=== PATIENT | female | born 1935 | race Caucasian/White ===

== ENCOUNTER 2019-10-24 05:59 | Inpatient (IN) ==
--- NOTE | 2019-10-14 13:14 | PAT Medication Instructions ---
Medication Instructions Date of Service October 14, 2019 Home Medications Eliquis 5 mg PO BID Macular Health Formula 1 cap PO BID allopurinol 300 mg PO QAM metoprolol succinate 75 mg PO QAM pravastatin 20 mg PO QAM tolterodine 4 mg PO QAM lorazepam 0.5 mg SUBLINGUAL DAILY PRN ASK your prescriber and surgeon Eliquis 5 mg PO BID STOP taking 2 weeks before surgery Macular Health Formula 1 cap PO BID DO NOT take the morning of surgery tolterodine 4 mg PO QAM Take morning of surgery With a small sip of water, OTHERWISE NOTHING TO EAT OR DRINK AFTER MIDNIGHT: allopurinol 300 mg PO QAM metoprolol succinate 75 mg PO QAM pravastatin 20 mg PO QAM lorazepam 0.5 mg SUBLINGUAL DAILY PRN (if needed) Take evening before surgery lorazepam 0.5 mg SUBLINGUAL DAILY PRN (if needed) Other Notes If you have any questions please call us at [phone] or [phone] or [phone] or [phone]
--- NOTE | 2019-10-15 12:34 | Anesthesiology Consultation ---
Date of Service October 15, 2019 Assessment & Plan (1) Encounter for pre-operative examination: Chart Review Chart Review: Pending: Refer to Additional Notes / Consult section (Most recent pacer check and cardio note) and Patient seen in Pre Admission Testing Per 10/15/19 [facility] appt, pt resides in [facility] but denies other travel. Did educate patient about discussing Covid testing three days prior to surgery with surgeon. Educated on importance of social distancing and quarantine from time of Covid test until after surgery Teaching & Discussion Pre-Anesthesia Teaching/Discussion Notes: Instructed NPO after midnight before surgery,except medications with 15 cc of water. Medication instructions provided according to the [facility] guidelines. History Surgery Operation Date: 10/24/19 07:45 Proposed Procedures p L5-S1 Decompression and Fusion, Spinal Cord Monitoring - Felix Tovar, Height/Weight Height: 5 ft 5 in Weight: 81.1 kg Allergies Allergy/AdvReac Type Severity Reaction Status Date / Time adhesive tape Allergy Rash Verified 10/11/19 10:22 tetracycline Allergy Rash Verified 10/11/19 10:22 Medications Home Medications Medication Instructions Recorded Confirmed Last Taken Eliquis 5 mg PO BID 11/22/18 10/11/19 12/08/18 Macular Health Formula 1 cap PO BID 11/22/18 10/11/19 12/10/18 allopurinol 300 mg PO QAM 11/22/18 10/11/19 12/10/18 metoprolol succinate 75 mg PO QAM 11/22/18 10/11/19 12/11/18 08:40 pravastatin 20 mg PO QAM 11/22/18 10/11/19 12/10/18 tolterodine 4 mg PO QAM 11/22/18 10/11/19 12/10/18 lorazepam 0.5 mg SUBLINGUAL DAILY PRN 11/28/18 10/11/19 12/10/18 Past Medical History Medical History Ankylosing spondylitis Atrial fibrillation no cardioversions> has pacer GERD (gastroesophageal reflux disease) Well controlled and stable History of anesthesia reaction "HAD A HARD TIME WAKING UP" IN 1962 - NO ISSUES WITH SUBSEQUENT SURGERIES History of tuberculosis exposure Possibly as child> unsure if actually had the infection or not- incidental finding on CXR Hyperlipidemia Hypertension Kidney stones passed on own Lyme disease x2 Macular degeneration Pacemaker [employer] checked within last 6 months > [facility] checks it. follows Dr. Cedeno at [facility] Sleep apnea CPAP Stroke DEC 2017> no residual effects. Double vision initially but no longer> doesn't follow with anyone> Eliquis Exercise / Class Metabolic Activity III < 4 Walking/Shop/Light housework (one flight of stairs- mild SOB but no chest pain) Past Family History Family History Mother Cancer Father Cancer Past Surgical History Surgical History Fusion of spine L2,3 History of appendectomy History of bowel resection History of cardiac cath june 2014> [facility]> no stents> just for check up of Afib/ post ablation History of cataract surgery LEFT. 11/27/2018. PROPOFOL USED, NO ISSUES History of colonoscopy History of hysterectomy History of Alex fundoplication x2 History of radiofrequency ablation (RFA) procedure for cardiac arrhythmia Mar 2014 History of tonsillectomy S/P tendon repair RIGHT HAND x2 and also cyst removal Past Anesthesia History No Hx of Anesthesia Complications (WITH EXCEPTION OF ONE EPISODE OF SLOW TO WAKE ) and No Family Hx of Anesthesia Complications History of PONV No Hx of PONV and No Hx of Motion Sickness Social History Smoking Status: Never smoker Do You Dip or Chew Tobacco: No Hx Alcohol Use: Yes Alcohol type: wine alcohol intake frequency: holidays/special occasions only Hx Substance Use: No substance use type: does not use Review of Systems Patient denies chest pain, shortness of breath, cough, wheezing, palpitations. No hx of seizures, NE. No hx of blood clots or blood transfusions Physical Exam Vital Signs VITALS BP 138/82 P 61 TEMP 98.2 SP02 95% RESP 16 Constitutional no acute distress ENMT Mouth: no TMJ clicking Thyromental Distance: < 3.5 Finger Breadths (3.0) Mallampati Class: III Crowns to molars Denies missing teeth Neck + short neck, + thick neck and + limited neck extension (minimal ) Respiratory normal respiratory effort; no respiratory distress Auscultation: lungs clear to auscultation bilaterally; no wheezes Cardiovascular Rate/Rhythm: regular rate and regular rhythm Heart Sounds: no murmur Vessels: no carotid bruit Musculoskeletal Spine: no pain with cervical ROM Neurologic moves all extremities Psychiatric Orientation: alert Testing Laboratory Results 10/15/19 12:50 10/15/19 12:50 PT 11.4 Seconds (9.0-12.0) 10/15/19 12:50 INR 1.1 (0.9-1.1) 10/15/19 12:50 APTT 44.6 Seconds (21.0-31.0) H 10/15/19 12:50 Urine Color Yellow 10/15/19 12:50 Urine Appearance Clear (Clear) 10/15/19 12:50 Urine pH 7.0 (4.5-7.5) 10/15/19 12:50 Ur Specific [place] 1.014 (1.000-1.030) 10/15/19 12:50 Urine Protein Negative (Negative) 10/15/19 12:50 Urine Glucose (UA) Negative (Negative) 10/15/19 12:50 Urine Ketones Negative (Negative) 10/15/19 12:50 Urine Nitrite Negative (Negative) 10/15/19 12:50 Ur Leukocyte Esterase 2+ (Negative) H 10/15/19 12:50 Urine WBC (Auto) 10-30 /hpf (0-5) H 10/15/19 12:50 Urine RBC (Auto) 0-4 /hpf (0-4) 10/15/19 12:50 U Hyaline Cast (Auto) 1-5 /lpf (0-5) 10/15/19 12:50 U Epithel Cells (Auto) 20-30 /lpf (0-5) H 10/15/19 12:50 Urine Bacteria (Auto) Negative (Negative) 10/15/19 12:50 Blood Type O Positive 10/15/19 12:50 Antibody Screen NEGATIVE 10/15/19 12:50 10/15/19 12:50 Urine Culture - Final Urine,Clean Catch More than three types of organisms present, all moderate counts mixed probable skin idalia. No further identifications or sensitivities to follow. Electrocardiogram Date: 10/15/19 Atrial paced rhythm with prolonged AV conduction at 60 bpm. Chest X-Ray Date: 10/15/19 Findings: + NAD Small hiatal hernia. Minimal basilar atelectasis. Otherwise negative study. Echocardiogram Date: 01/21/19 EF: 55-59% LV Function: normal RWMA: + none (not all segments were visualized ) Other Findings: + LVH (mild/concentric ) LAE suggests diastolic dysfunction. Mild AR. Mild to moderate MR. Mild TR. No apparent ASD or PFO were noted on exam. 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 Mild pulm HTN with PASP of 41mmHg. Stress Test Date: 02/01/19 Type: nuclear Normal myocardial perfusion imaging study with no obvious areas of ischemia or infarction. Breast attenuation. Normal gated EF >70%. EKG portion negative for ischemia. The risk/extent of ischemia is low. No significant changes since 02/02/17 study. Cardiac Catheterization Date: 07/03/14 LM- appears normal LCx- mild intimal disease LAD- 30% RCA- 30% Impression: Moderate nonobstructive coronary disease in the setting of preserved LV function (EF=60%). Mild to moderate pulm HTN (RVSP= 44mmHg) with normal wedge.
--- NOTE | 2019-10-15 13:30 | XRay Report ---
XR chest Pre-admission PA/Lat CLINICAL HISTORY: PAT preoperative COMPARISON STUDY: No previous studies for comparison. FINDINGS: Small hiatal hernia. Platelike atelectasis at the lung bases. Lungs otherwise appear clear. There is a permanent bipolar cardiac pacemaker. IMPRESSION: Small hiatal hernia. Minimal basilar atelectasis. Otherwise negative study. ACT 112: Negative or not required by law. The above report was generated using voice recognition software. It may contain grammatical, syntax or spelling errors. Electronically signed by: Luis Ling M.D. 10/15/2019 1:29 PM
[2019-10-15 14:14] LABS: Basophils # (auto) 0.01 K/uL (0-0.2); Basophils % (auto) 0.1 %; Eosinophils # (auto) 0.19 K/uL (0-0.5); Eosinophils % (auto) 2.7 %; Hematocrit (blood only) 44.3 % (37-47); Hemoglobin 14.9 g/dL (12.0-16.0); Immature Granulocytes # (auto) 0.01 K/uL (0.00-0.02); Immature Granulocytes % (auto) 0.1 %; Lymphocytes # (auto) 1.94 K/uL (1.2-3.4); Lymphocytes % (auto) 27.4 %; Mean Corpuscular Hemoglobin 33.1 pg (25-34); Mean Corpuscular Hgb Conc 33.6 g/dL (32-36); Mean Corpuscular Volume 98.4 fL (80-100); Mean Platelet Volume 9.4 fL (7.4-10.4); Monocytes # (auto) 0.45 K/uL (0.11-0.59); Monocytes % (auto) 6.3 %; Neutrophils # (auto) 4.49 K/uL (1.4-6.5); Neutrophils % (auto) 63.4 %; Platelet Count 223 K/uL (130-400); RDW Coefficient of Variation 14.8 % (11.5-14.5); White Blood Count 7.09 K/uL (4.8-10.8)
[2019-10-15 14:19] LABS: BUN Creatinine Ratio 20.7 (10-20); Calcium 10.3 mg/dl (8.5-10.1); Creatinine Clr Calc Pharmacy 52.1 ml/min; Est GFR (African American) 72.4; Est GFR (Non-African American) 62.5; Potassium 4.1 mmol/L (3.5-5.1)
[2019-10-15 14:34] LABS: INR 1.1 (0.9-1.1); Partial Thromboplastin Ratio 1.6; Partial Thromboplastin Time 44.6 Seconds (21.0-31.0); Prothrombin Time 11.4 Seconds (9.0-12.0)
[2019-10-15 14:48] LABS: Appearance Urine Clear (Clear); Bacteria Urine Automated Negative (Negative); Bilirubin Urine Negative (Negative); Blood Urine Negative (Negative); Color Urine Yellow; Epithelial Cell Urine Auto 20-30 /lpf (0-5); Glucose Urine UA Negative (Negative); Ketones Urine Negative (Negative); Leukocyte Esterase Urine 2+ (Negative); Nitrite Urine Negative (Negative); Protein Urine Negative (Negative); RBC Urine Automated 0-4 /hpf (0-4); Specific Gravity Urine 1.014 (1.000-1.030); Urobilinogen Urine Negative (Negative)
--- NOTE | 2019-10-16 15:34 | Electrocardiogram Report ---
Test Reason : Blood Pressure : / mmHG Vent. Rate : 060 BPM Atrial Rate : 060 BPM P-R Int : 252 ms QRS Dur : 080 ms QT Int : 430 ms P-R-T Axes : 000 012 068 degrees QTc Int : 430 ms Atrial-paced rhythm with prolonged AV conduction Abnormal ECG No previous ECGs available Confirmed by Modesto Avelar ([id number]) on 10/16/2019 3:34:27 PM Referred By: Felix Tovar Confirmed By:Leroy Avelar
[2019-10-24] MEDS ORDERED: CeleBREX 200 MG CAP PO SCH (06:00)
[2019-10-24] MEDS ORDERED: GABAPENTIN 300 MG CAP PO SCH (06:00)
[2019-10-24] MEDS ORDERED: LR 15ML/HR IV SCH (06:00)
[2019-10-24] MEDS ORDERED: CEFAZOLIN 2000MG 2,000 MG/15 ML SYR IV SCH (06:00)
[2019-10-24] MEDS ORDERED: ACETAMINOPHEN 500 MG TAB PO SCH (06:00)
[2019-10-24] MEDS ORDERED: ONDANSETRON INJ 2 MG/ML 2 ML VIAL IV PRN ×2 (06:45→11:51)
[2019-10-24] MEDS ORDERED: ATROPINE SULFATE 0.1 MG/ML 10ML SYR IV PRN (06:45)
[2019-10-24] MEDS ORDERED: ePHEDrine sulfate 50 MG/ML AMP IV PRN (06:45)
[2019-10-24] MEDS ORDERED: ONDANSETRON INJ 2 MG/ML 2 ML VIAL ONE (06:49)
[2019-10-24] MEDS ORDERED: DEXAMETHASONE SOD INJ 4 MG/ML VIAL ONE (06:49)
[2019-10-24] MEDS ORDERED: ROCURONIUM BROMIDE 10 MG/ML 5 ML VIAL IV ONE (06:49)
[2019-10-24] MEDS ORDERED: PROPOFOL IV EMULSION 10 MG/ML 20 ML VIAL IV ONE (06:49)
[2019-10-24] MEDS ORDERED: LIDOCAINE HCL 2% 2 ML VIAL/AMP(20MG/ML) INFIL ONE (06:49)
[2019-10-24] MEDS ORDERED: fentaNYL citrate 100 MCG/2 ML VIAL ONE (06:49)
[2019-10-24] MEDS ORDERED: BUPIVACAINE/EPINEPHRINE 0.25% 1:200,000 30 ML VIAL ONE (06:56)
[2019-10-24] MEDS ORDERED: BACITRACIN INJ 50,000 UNIT VIAL ONE (06:56)
--- NOTE | 2019-10-24 07:31 | History & Physical Bridge Note ---
Date of Service October 24, 2019 History & Physical Bridge Note I have examined the patient, reviewed the History & Physical and in the interval since the performance of the History & Physical I have noted the following changes of clinical significance: no changes noted
--- NOTE | 2019-10-24 07:32 | History & Physical Report ---
Date of Service October 24, 2019 Assessment & Plan (1) Neurogenic claudication due to lumbar spinal stenosis: L5-S1 decompression fusion Present on Admission?: Yes History of Present Illness Chief Complaint: Back and leg pain Primary Care Provider: Shyanne Rivera PA-C This is an 84-year-old female who presents with chronic persistent back and leg pain. After failing extensive course of nonoperative care is here for surgical intervention. Allergies Allergy/AdvReac Type Severity Reaction Status Date / Time adhesive tape Allergy Rash Verified 10/24/19 07:00 tetracycline Allergy Rash Verified 10/24/19 07:00 Home Medications Home Medications Medication Instructions Recorded Confirmed Type Eliquis 5 mg PO BID 11/22/18 10/24/19 History Macular Health Formula 1 cap PO BID 11/22/18 10/24/19 History allopurinol 300 mg PO QAM 11/22/18 10/24/19 History metoprolol succinate 75 mg PO QAM 11/22/18 10/24/19 History pravastatin 20 mg PO QAM 11/22/18 10/24/19 History tolterodine 4 mg PO QAM 11/22/18 10/24/19 History lorazepam 0.5 mg SUBLINGUAL DAILY PRN 11/28/18 10/24/19 History aspirin 81 mg PO DAILY 10/24/19 10/24/19 History Past Med/Surg History Medical History Ankylosing spondylitis Atrial fibrillation no cardioversions> has pacer GERD (gastroesophageal reflux disease) Well controlled and stable History of anesthesia reaction "HAD A HARD TIME WAKING UP" IN 1962 - NO ISSUES WITH SUBSEQUENT SURGERIES History of tuberculosis exposure Possibly as child> unsure if actually had the infection or not- incidental finding on CXR Hyperlipidemia Hypertension Kidney stones passed on own Lyme disease x2 Macular degeneration Pacemaker [employer] checked within last 6 months > [facility] checks it. follows Dr. Cedeno at [facility] Sleep apnea CPAP Stroke DEC 2017> no residual effects. Double vision initially but no longer> doesn't follow with anyone> Eliquis Surgical History Fusion of spine L2,3 History of appendectomy History of bowel resection History of cardiac cath june 2014> [facility]> no stents> just for check up of Afib/ post ablation History of cataract surgery LEFT. 11/27/2018. PROPOFOL USED, NO ISSUES History of colonoscopy History of hysterectomy History of Alex fundoplication x2 History of radiofrequency ablation (RFA) procedure for cardiac arrhythmia Mar 2014 History of tonsillectomy S/P tendon repair RIGHT HAND x2 and also cyst removal Family History Mother Cancer Father Cancer Social History Preferred Language: Italian Communication Ability: Effective Vascular Radiologist Required: No Beliefs That Will Affect Care: None Current Living Situation: Alone Other Information That Helps Us Care for You: No Feels Safe at Home: Yes Safety Concerns: Feels Safe At This Time Smoking Status: Never smoker Do You Dip or Chew Tobacco: No ; Second Hand Exposure: No ; Tobacco Cessation Education Requested by Patient: No Hx Alcohol Use: Yes Alcohol type: wine Hx Substance Use: No Physical Exam Physical Exam: Patient is alert and oriented neurologically intact. Heart regular rate and rhythm. Lungs clear to auscultation. Results & Data Vital Signs (Past 12 Hours) Vital Signs Temp Pulse Resp BP Pulse Ox 10/24/19 07:07 36.6 C 63 20 164/71 H 94
[2019-10-24] MEDS ORDERED: NEOSTIGMINE METHYLSULFATE 5 MG/5 ML SYR ONE (09:11)
[2019-10-24] MEDS ORDERED: GLYCOPYRROLATE 0.2 MG/ML VIAL ONE (09:11)
[2019-10-24] MEDS ORDERED: FLOSEAL HEMOSTATIC MATRIX 10ML TOP ONE (09:15)
--- NOTE | 2019-10-24 09:17 | Operative Report ---
Post Operative Report Pre & Post Diagnosis Operation Date: 10/24/19 07:45 Pre-Op Diagnosis: Neurogenic claudication due to lumbar spinal stenosis Post-Op Diagnosis: Neurogenic claudication due to lumbar spinal stenosis I identified the patient and participated in the time-out.: Yes Procedure Operation Date: 10/24/19 07:45 Actual Procedures #1 lumbar decompression with bilateral medial facetectomies and foraminotomies L4-5 L5-S1. #2 posterior spinal fusion L5-S1. #3 placement posterior instrumentation L5-S1. #4 placement of locally harvested morselized autograft in the posterior lateral gutters. #5 placement infuse collagen sponge bone master graft in the posterior lateral gutters. Surgeon Felix Tovar, Trenching Machine Operator Sarah Rausch Estimated Blood Loss 100 Findings Consistent with Post-Op Diagnosis Specimens None Indications This is an 84-year-old female presents with above-mentioned diagnosis after failing extensive course of nonoperative care is here for the above-mentioned procedure. Description of Procedure Patient was met with preoperatively case discussed all questions addressed. After informed consent obtained. Patient was taken to the operative suite and underwent intubation placed in a prone position the Villa table on top of the Hai frame. This point the lumbar spine was prepped and draped in a normal sterile fashion. Sharp dissection with the assistance of Bovie cautery was performed down to and exposing the lamina and transverse processes of L5 and the sacral ala. Then performed a complete laminectomy of L5 and a partial laminectomy of L4 including bilateral medial facetectomies and foraminotomies addressing severe spinal stenosis. Pedicle screws were then placed in L5 and S1 levels bilaterally with the assistance of fluoroscopy and appropriately sized anel locked into position. The transverse processes of L5 and S1 were then burred to subcortical bleeding bone. Infuse collagen sponge master graft local autograft was placed in the posterior lateral gutters. 15 round LENORA drain inserted. The incision was then closed with 1 Vicryl in the fascia 2-0 Vicryl subcutaneously and 4 Monocryl for final skin closure. Steri-Strip sterile dressings placed. Patient will continue to PACU stable addition. Please note spinal cord monitoring was utilized that the procedure no changes noted. Lastly Sarah Rausch was present at the entire procedure involved the patient positioning complex portions of the surgery and final skin closure. I attest to the content of the Intraoperative Record and any orders documented therein. Any exceptions are noted below.
--- NOTE | 2019-10-24 09:41 | Fluoroscopy Report ---
INTRAOPERATIVE RADIOGRAPHS CLINICAL HISTORY: L5-S1 spinal fusion. Fluoroscopy time: 22 seconds. FINDINGS: 2 spot fluoroscopic views of the lumbar spine are presented. There is been laminectomy and posterior fusion at L5-S1. Interpedicular screws are in place. The orthopedic hardware appears intact . Postoperative change in the upper lumbar spine is only partially imaged. IMPRESSION: Intraoperative images from L5-S1 spinal fusion as above. Electronically signed by: Alejandro Daniels M.D. 10/24/2019 9:40 AM
[2019-10-24] MEDS: fentaNYL citrate 100 MCG/2 ML VIAL IV PRN ×4 (09:42→10:04)
--- NOTE | 2019-10-24 10:08 | Anesthesiology Progress Note ---
Date of Service October 24, 2019 Anesthesia Post Procedure Vital Signs Vital Signs: Temp Pulse Pulse Resp BP Pulse Ox 10/24/19 10:05 60 14 126/69 96 10/24/19 09:55 60 14 120/77 96 10/24/19 09:45 60 14 147/77 H 98 10/24/19 09:36 97.2 F L 60 12 160/79 H 99 10/24/19 07:07 97.9 F 63 20 164/71 H 94 Pain Intensity Lower Back: Pain Intensity: 5 Transfer of Care Handoff Completed per policy Notes Mental Status: alert / awake / arousable and participated in evaluation Patient Amnestic to Procedure: Yes Nausea / Vomiting: adequately controlled Pain: adequately controlled Airway Patency, RR, SpO2: stable & adequate BP & HR: stable & adequate Hydration State: stable & adequate Anesthetic Complications: no major complications apparent and Pt Satisfied with anesthetic care
[2019-10-24] MEDS ORDERED: MAGNESIUM HYDROXIDE SUSP 30 ML UDC PO PRN (11:51)
[2019-10-24] MEDS ORDERED: TRAMADOL HCL 50 MG TABLET PO PRN (11:51)
[2019-10-24] MEDS ORDERED: DO NOT ADMINISTER FLU VACCINE PRN (11:51)
[2019-10-24] MEDS ORDERED: ACETAMINOPHEN 500 MG TAB PO PRN (11:51)
[2019-10-24] MEDS ORDERED: bisacodyL 10 MG SUPP PR PRN (11:51)
[2019-10-24] MEDS ORDERED: SOD PHOSPHATE/SOD BIPHOSPHATE ENEMA 132 ML BTL PR PRN (11:51)
[2019-10-24] MEDS ORDERED: NALOXONE HCL 0.4 MG/1 ML VIAL/CARP IV PRN (11:51)
[2019-10-24] MEDS ORDERED: FAMOTIDINE 20 MG TAB PO PRN (11:51)
[2019-10-24] MEDS ORDERED: ALUMINUM/MAGNESIUM SUSP 30 ML UDC PO PRN (11:51)
[2019-10-24] MEDS ORDERED: LORazepam 0.5 MG/1 ML VIAL IV PRN (11:51)
[2019-10-24] MEDS ORDERED: PROMETHAZINE HCL 12.5 MG in SODIUM CHLORIDE 0.9% 50 ML IV PRN (11:51)
[2019-10-24] MEDS ORDERED: DO NOT ADMINISTER PNEUMOCOCCAL VACCINE PRN (11:51)
[2019-10-24] MEDS ORDERED: OXYCODONE HCL IR 5 MG TAB (IMMEDIATE RELEASE) PO PRN (11:51)
[2019-10-24] MEDS ORDERED: ONDANSETRON 4 MG OD TAB PO PRN (11:51)
[2019-10-24] MEDS ORDERED: LORazepam 0.5 MG TAB PO PRN (11:51)
[2019-10-24] MEDS ORDERED: METOCLOPRAMIDE HCL INJ 5 MG/ML 2 ML VIAL IV PRN (11:51)
[2019-10-24] MEDS ORDERED: ACETAMINOPHEN 1,000 MG/100 ML VIAL IV PRN (11:51)
[2019-10-24] MEDS ORDERED: HYDROmorphone INJ 0.5 MG/0.5 ML SYR IV PRN (11:51)
[2019-10-24] MEDS ORDERED: HYDROmorphone INJ 1 MG/ML SYRINGE IV PRN (11:51)
--- NOTE | 2019-10-24 14:12 | Hospitalist Consultation ---
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 Tovar. POD#0 s/p L5-S1 decompression and fusion by Dr. Tovar. Pt is doing well post-operatively Per ortho for pain control, wound care, anticoagulation and activities Monitor H&H (EBL: 25ml, LENORA output to date: 85ml). Continue incentive spirometry, PT/OT when appropriate (2) Atrial fibrillation: S/p ablation in 2013. 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 No residual deficits. Resume Eliquis as soon as possible, per Dr. Tovar Continue pravastatin, aspirin (4) SSS (sick sinus syndrome): S/p pacemaker placement (5) Diabetes mellitus type 2, diet-controlled: A1c of 6.5 in June 2019. Diabetic diet (6) Hypertension: Normotensive. Continue Toprol. Holding HCTZ for tomorrow until volume status/kidney function is assessed on AM labs (7) Hyperlipidemia: Continue pravastatin (8) VAISHNAVI on CPAP: CPAP HS PCP: ANNA Rivera Dispo: Per primary service Patient seen in collaboration with Dr. Morfin. Please see addendum. Supervising Physician Co-Signing Physician Notes Attending addendum: This is a 84-year-old female with past medical history of hypertension chronic A. fib, on Eliquis, type 2 diabetes Underwent elective lumbar spine decompression surgery for chronic back pain, lumbar spine stenosis Recovering well postop Denies of any chest pain no shortness of breath no fever or chills Patient's anticoagulation Eliquis was kept on hold preop, will be resumed when safe from bleeding complication as per spinal orthopedics Continue pain management PT OT as per spinal orthopedics Please refer to further documentation by Chloe Arizmendi PA-C for discussion of other chronic issues Fabi Morfin MD History of Present Illness Reason for Consultation: post op med mgmt Attending Physician: Felix Tovar DO History of Present Illness This is an 84yo F with a PMH of paroxysmal A fib and 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 Tovar. Patient is feeling well postoperatively. Endorses only minimal surgical site pain and denies any lower extremity numbness, tingling or pain. Tolerated lunch without nausea or vomiting. Denies headache, confusion, chest pain, shortness of breath, abdominal pain, dysuria, diarrhea constipation. Last bowel movement was yesterday. Follows with ANNA Rivera in [place]. Is t aking Eliquis for history of embolic CVA and paroxysmal atrial fibrillation. Eliquis has been held since Monday, per instruction from kick plate installer, and is to resume it as soon as possible following procedure. Allergies Allergy/AdvReac Type Severity Reaction Status Date / Time adhesive tape Allergy Rash Verified 10/24/19 07:00 tetracycline Allergy Rash Verified 10/24/19 07:00 Home Medications Home Medications Medication Instructions Recorded Confirmed Type Eliquis 5 mg PO BID 11/22/18 10/24/19 History Macular Health Formula 1 cap PO BID 11/22/18 10/24/19 History allopurinol 300 mg PO QAM 11/22/18 10/24/19 History metoprolol succinate 75 mg PO QAM 11/22/18 10/24/19 History pravastatin 20 mg PO QAM 11/22/18 10/24/19 History lorazepam 0.5 mg SUBLINGUAL DAILY PRN 11/28/18 10/24/19 History aspirin 81 mg PO DAILY 10/24/19 10/24/19 History hydrochlorothiazide 12.5 mg PO DAILY 10/24/19 10/24/19 History tolterodine 2 mg PO BID 10/24/19 10/24/19 History Patient History Medical History Ankylosing spondylitis Atrial fibrillation no cardioversions> has pacer Diabetes mellitus type 2, diet-controlled GERD (gastroesophageal reflux disease) Well controlled and stable History of tuberculosis exposure Possibly as child> unsure if actually had the infection or not- incidental finding on CXR Hyperlipidemia Hypertension Kidney stones passed on own Lyme disease x2 Macular degeneration Pacemaker [employer] checked within last 6 months > [employer] [facility] checks it. follows Dr. Cedeno at [facility] Sleep apnea CPAP SSS (sick sinus syndrome) Stroke DEC 2017> no residual effects. Double vision initially but no longer> doesn't follow with anyone> Eliquis Surgical History (Updated 10/24/19 @ 14:08 by Chloe Arizmendi PA-C) Fusion of spine L2,3 History of anesthesia reaction "HAD A HARD TIME WAKING UP" IN 1962 - NO ISSUES WITH SUBSEQUENT SURGERIES History of appendectomy History of bowel resection History of cardiac cath june 2014> [employer]> no stents> just for check up of Afib/ post ablation History of cataract surgery LEFT. 11/27/2018. PROPOFOL USED, NO ISSUES History of colonoscopy History of hysterectomy History of Alex fundoplication x2 History of radiofrequency ablation (RFA) procedure for cardiac arrhythmia Mar 2014 History of tonsillectomy S/P tendon repair RIGHT HAND x2 and also cyst removal Family History Mother Cancer Father Cancer Social History (Updated 10/24/19 @ 14:06 by Chloe Arizmendi PA-C) Preferred Language: Guinean Communication Ability: Effective On Air Director Required: No Beliefs That Will Affect Care: None Current Living Situation: Alone Other Information That Helps Us Care for You: No Feels Safe at Home: Yes Safety Concerns: Feels Safe At This Time Smoking Status: Never smoker Do You Dip or Chew Tobacco: No ; Second Hand Exposure: No ; Tobacco Cessation Education Requested by Patient: No Hx Alcohol Use: Yes Alcohol type: wine Alcohol Intake Frequency: Rarely Hx Substance Use: No Review of Systems Review of Systems: At least ten systems reviewed and negative except as noted in the HPI. Physical Exam Physical Exam: General Appearance: WD/WN, vitals as above, NAD, lying in bed, pleasant, conversing easily Head: normocephalic, atraumatic Eyes: normal inspection, PERRL, conjunctivae normal, anicteric sclerae ENT: external ear and nose normal, oropharynx normal Neck: trachea midline, no thyromegaly normal visual inspection Respiratory: normal respiratory effort, lungs clear to auscultation, no wheeze, rales, rhonchi. Normal insp/exp effort, no accessory muscle use Cardiovascular: regular rate, rhythm, no murmur, normal peripheral pulses Chest: normal inspection of chest Abdomen/GI: normal bowel sounds, soft, nontender, no hepatosplenomegaly Extremities/Musculoskeletal: Lumbosacral spine dressing clean, dry, intact. LENORA drain with serosanguineous output. No cyanosis or clubbing, extremities motor strength 5/5 Neurologic: PERRL, EOMI, accommodation nl, no face palsy, no dysarthria, CN's II-XI intact bilaterally and moves all extremities Psychiatric: A+Ox3, euthymic affect Skin: no rashes, normal color, warm/dry Results & Data Results & Data ([facility]) Vital Signs (Past 12 Hours) Vital Signs Temp Pulse Pulse Resp BP Pulse Ox 10/24/19 13:08 60 16 140/73 96 10/24/19 12:15 60 15 141/93 H 96 10/24/19 11:51 60 15 136/83 95 10/24/19 11:19 58 L 14 136/82 95 10/24/19 10:45 61 14 143/71 H 92 10/24/19 10:35 61 11 L 145/71 H 97 10/24/19 10:25 60 14 115/85 95 10/24/19 10:15 36.3 C L 60 14 134/73 95 10/24/19 10:05 60 14 126/69 96 10/24/19 09:55 60 14 120/77 96 10/24/19 09:45 60 14 147/77 H 98 10/24/19 09:36 36.2 C L 60 12 160/79 H 99 10/24/19 07:07 36.6 C 63 20 164/71 H 94
[2019-10-24] MEDS: SODIUM CHLORIDE 0.9% 1000ML 1,000 ML IV SCH (16:40)
[2019-10-24] MEDS: CEFAZOLIN 2000MG 2,000 MG/15 ML SYR IV SCH (16:45)
[2019-10-24] MEDS: TOLTERODINE TARTRATE 2 MG TAB PO SCH (22:16)
[2019-10-24] MEDS: MULTIVITAMIN TAB PO SCH (22:16)
[2019-10-24] MEDS: DOCUSATE SODIUM/SENNA 50/8.6MG TAB PO SCH (22:18)
[2019-10-25] MEDS: SODIUM CHLORIDE 0.9% 1000ML 1,000 ML IV SCH (01:47)
[2019-10-25] MEDS: CEFAZOLIN 2000MG 2,000 MG/15 ML SYR IV SCH (01:47)
[2019-10-25] MEDS: POLYETHYLENE (MIRALAX) 17 GM PACK PO SCH ×3 (05:24→17:58)
[2019-10-25 05:34] LABS: Hematocrit (blood only) 36.1 % (37-47); Hemoglobin 12.2 g/dL (12.0-16.0); Immature Granulocytes # (auto) 0.02 K/uL (0.00-0.02); Immature Granulocytes % (auto) 0.2 %; Lymphocytes # (auto) 0.69 K/uL (1.2-3.4); Lymphocytes % (auto) 7.1 %; Mean Corpuscular Hemoglobin 32.7 pg (25-34); Mean Corpuscular Hgb Conc 33.8 g/dL (32-36); Mean Corpuscular Volume 96.8 fL (80-100); Monocytes % (auto) 4.1 %; Neutrophils # (auto) 8.63 K/uL (1.4-6.5); Neutrophils % (auto) 88.6 %; Platelet Count 189 K/uL (130-400); RDW Coefficient of Variation 14.4 % (11.5-14.5); Red Blood Count 3.73 M/uL (4.2-5.4); White Blood Count 9.74 K/uL (4.8-10.8)
[2019-10-25 06:00] LABS: BUN Creatinine Ratio 22.5 (10-20); Calcium 8.8 mg/dl (8.5-10.1); Creatinine Clr Calc Pharmacy 61.9 ml/min; Est GFR (African American) 89.8; Est GFR (Non-African American) 77.4
[2019-10-25] MEDS: PRAVASTATIN SOD 20 MG TAB PO SCH (08:34)
[2019-10-25] MEDS: TOLTERODINE TARTRATE 2 MG TAB PO SCH ×2 (08:34→21:16)
[2019-10-25] MEDS: MULTIVITAMIN TAB PO SCH ×2 (08:34→21:17)
[2019-10-25] MEDS: ASPIRIN 81 MG ECTAB PO SCH (08:35)
[2019-10-25] MEDS: METOPROLOL SUCC 25MG EXT REL TAB PO SCH (08:35)
[2019-10-25] MEDS: allopurinoL 300 MG TAB PO SCH (08:35)
[2019-10-25] MEDS ORDERED: TOLTERODINE TARTRATE LA 4 MG CAPCR PO SCH (09:00)
--- NOTE | 2019-10-25 10:42 | Anesthesiology Progress Note ---
Date of Service October 25, 2019 Anesthesia Post Procedure Vital Signs Vital Signs: Temp Pulse Pulse Resp BP Pulse Ox 10/25/19 07:00 36.6 C 61 16 116/73 95 10/25/19 03:23 36.5 C 61 16 130/83 95 10/24/19 23:01 36.5 C 60 16 115/72 94 10/24/19 19:06 36.5 C 60 16 108/69 96 10/24/19 15:22 36.3 C L 65 16 106/69 96 10/24/19 14:00 67 16 106/66 95 10/24/19 13:08 60 16 140/73 96 10/24/19 12:15 60 15 141/93 H 96 10/24/19 11:51 60 15 136/83 95 10/24/19 11:19 58 L 14 136/82 95 10/24/19 10:45 61 14 143/71 H 92 Pain Intensity Lower Back: Pain Intensity: 3 Notes Mental Status: alert / awake / arousable Patient Amnestic to Procedure: Yes Nausea / Vomiting: adequately controlled Pain: adequately controlled Airway Patency, RR, SpO2: stable & adequate BP & HR: stable & adequate Hydration State: stable & adequate
--- NOTE | 2019-10-25 10:46 | Hospitalist Progress Note ---
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 Tovar on 10/24/2019 -preop Hgb 14.9 and Hgb 12.2 on 10/25/2019 which is reasonable level of blood count decrease in context of surgery with LENORA drain. patient feeling "great" as per her subjective evaluation on bedside exam - denies acute pain of the back currently, has been able to urinate without incontinence, no bowel movement post-op as of yet, no dizziness, no headache, no chest pain, no shortness of breath, is breathing on room air. -current pain medication regimen appears adequate -bowel regimen to prevent constipation -LENORA drain management as per orthopedics -PT/OT evalautions (2) Atrial fibrillation: S/p ablation in 2013. 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 No residual deficits. Continue pravastatin, aspirin orthopedics can determine when eliquis should be resumed (4) SSS (sick sinus syndrome): S/p pacemaker placement (5) Diabetes mellitus type 2, diet-controlled: A1c of 6.5 in June 2019. Diabetic diet (6) Hypertension: Normotensive. Continue Toprol. continue to hold HCTZ as blood pressure stable for now (7) Hyperlipidemia: Continue pravastatin (8) VAISHNAVI on CPAP: CPAP HS PCP: ANNA Rivera Admission and Anticipated Discharge Date Admission Date: October 24, 2019 Subjective preop Hgb 14.9 and Hgb 12.2 on 10/25/2019 which is reasonable level of blood count decrease in context of surgery with LENORA drain. patient feeling "great" as per her subjective evaluation on bedside exam - denies acute pain of the back currently, has been able to urinate without incontinence, no bowel movement post-op as of yet, no dizziness, no headache, no chest pain, no shortness of breath, is breathing on room air. Review of Systems Review of Systems: All systems reviewed & are unremarkable except as noted in Subjective Physical Exam Constitutional: WD/WN, vitals as above Eyes: PERRL, conjunctivae normal, anicteric sclerae EOM intact bilaterally ENMT: external ear and nose normal, oropharynx normal Neck: normal visual inspection Respiratory: normal respiratory effort, lungs clear to auscultation Cardiovascular: Rate/Rhythm: regular rate Gastrointestinal (Abdomen): normal bowel sounds, soft, nontender, no hepatosplenomegaly Musculoskeletal: Head/Neck/Chest: normocephalic and head atraumatic Neurologic: PERRL, EOMI, accommodation nl, no face palsy, no dysarthria CN's II-XI intact bilaterally Psychiatric: A+Ox3, euthymic affect Results & Data Results & Data ([facility]) Vital Signs (Past 12 Hours) Vital Signs Temp Pulse Resp BP Pulse Ox 10/25/19 07:00 36.6 C 61 16 116/73 95 10/25/19 03:23 36.5 C 61 16 130/83 95 10/24/19 23:01 36.5 C 60 16 115/72 94
--- NOTE | 2019-10-25 14:24 | Orthopedic Progress Note ---
Date of Service October 25, 2019 Assessment & Plan (1) Neurogenic claudication due to lumbar spinal stenosis: This time we will continue physical therapy monitor her LENORA output anticipate discharge home in the next few days. Admission and Anticipated Discharge Date Admission Date: October 24, 2019 Subjective Back pain controlled leg symptoms markedly improved. Physical Exam Physical Exam: Patient is in the chair at the bedside. Is good strength testing. Results & Data ([facility]) Vital Signs (Past 12 Hours) Vital Signs Temp Pulse Resp BP Pulse Ox 10/25/19 11:35 36.4 C L 61 16 114/73 95 10/25/19 07:00 36.6 C 61 16 116/73 95 10/25/19 03:23 36.5 C 61 16 130/83 95
[2019-10-25] MEDS: DOCUSATE SODIUM/SENNA 50/8.6MG TAB PO SCH (21:17)
[2019-10-26] MEDS: POLYETHYLENE (MIRALAX) 17 GM PACK PO SCH ×3 (00:27→13:36)
[2019-10-26 07:16] LABS: Eosinophils # (auto) 0.12 K/uL (0-0.5); Eosinophils % (auto) 1.4 %; Hematocrit (blood only) 34.5 % (37-47); Hemoglobin 11.5 g/dL (12.0-16.0); Immature Granulocytes # (auto) 0.02 K/uL (0.00-0.02); Immature Granulocytes % (auto) 0.2 %; Lymphocytes # (auto) 1.97 K/uL (1.2-3.4); Lymphocytes % (auto) 23.4 %; Mean Corpuscular Hemoglobin 32.3 pg (25-34); Mean Corpuscular Hgb Conc 33.3 g/dL (32-36); Mean Corpuscular Volume 96.9 fL (80-100); Mean Platelet Volume 9.2 fL (7.4-10.4); Monocytes % (auto) 8.3 %; Neutrophils # (auto) 5.61 K/uL (1.4-6.5); Neutrophils % (auto) 66.7 %; Platelet Count 171 K/uL (130-400); RDW Coefficient of Variation 14.6 % (11.5-14.5); Red Blood Count 3.56 M/uL (4.2-5.4); White Blood Count 8.42 K/uL (4.8-10.8)
--- NOTE | 2019-10-26 08:20 | Hospitalist Progress Note ---
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 Tovar on 10/24/2019 -preop Hgb 14.9 and Hgb 12.2 on 10/25/2019 which is reasonable level of blood count decrease in context of surgery with LENORA drain. Hgb 11.5 on 10/26/2019 and LENORA drain remains -current pain medication regimen appears adequate -on bowel regimen to prevent constipation, awaiting bowel movement -LENORA drain management as per orthopedics -PT/OT evalautions (2) Atrial fibrillation: S/p ablation in 2013. 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 No residual deficits. Continue pravastatin, aspirin orthopedics can determine when eliquis should be resumed (4) SSS (sick sinus syndrome): S/p pacemaker placement (5) Diabetes mellitus type 2, diet-controlled: A1c of 6.5 in June 2019. Diabetic diet (6) Hypertension: Normotensive. Continue Toprol. continue to hold HCTZ as blood pressure stable for now (7) Hyperlipidemia: Continue pravastatin (8) VAISHNAVI on CPAP: CPAP HS PCP: ANNA Rivera Admission and Anticipated Discharge Date Admission Date: October 24, 2019 Subjective No acute distress. Patient has been seen this AM while laying flat on her back. she reports she has been ambulating. no bowel movements yet since the surgery, she has been taking the bowel regimen medications. no dizziness. no chest pain, no palpitations, no shortness of breath. breathing on room air Review of Systems Review of Systems: All systems reviewed & are unremarkable except as noted in Subjective Physical Exam Constitutional: WD/WN, vitals as above Eyes: PERRL, conjunctivae normal, anicteric sclerae EOM intact bilaterally ENMT: external ear and nose normal, oropharynx normal Neck: normal visual inspection Respiratory: normal respiratory effort, lungs clear to auscultation Cardiovascular: Rate/Rhythm: regular rate Gastrointestinal (Abdomen): normal bowel sounds, soft, nontender, no hepatosplenomegaly Musculoskeletal: Head/Neck/Chest: normocephalic and head atraumatic presence of LENORA drain to the back Neurologic: PERRL, EOMI, accommodation nl, no face palsy, no dysarthria CN's II-XI intact bilaterally Psychiatric: A+Ox3, euthymic affect Results & Data Results & Data ([facility]) Vital Signs (Past 12 Hours) Vital Signs Temp Pulse Resp BP Pulse Ox 10/26/19 07:49 36.6 C 60 16 109/72 97 10/25/19 23:30 36.4 C L 67 15 131/89 97
[2019-10-26] MEDS: PRAVASTATIN SOD 20 MG TAB PO SCH (08:42)
[2019-10-26] MEDS: allopurinoL 300 MG TAB PO SCH (08:43)
[2019-10-26] MEDS: METOPROLOL SUCC 25MG EXT REL TAB PO SCH (08:43)
[2019-10-26] MEDS: ASPIRIN 81 MG ECTAB PO SCH (08:43)
[2019-10-26] MEDS: TOLTERODINE TARTRATE 2 MG TAB PO SCH (08:43)
[2019-10-26] MEDS: MULTIVITAMIN TAB PO SCH (08:43)
[2019-10-26] MEDS ORDERED: DEXAMETHASONE SOD PHOSPHATE 8 MG in SYRINGE 0 ML IV SCH (09:00)
--- NOTE | 2019-10-26 09:56 | Discharge Summary ---
Date of Service October 26, 2019 Admission HPI Per Admitting Provider This is an 84-year-old female who presents with chronic persistent back and leg pain. After failing extensive course of nonoperative care is here for surgical intervention. Principal Diagnosis Lumbar spinal stenosis with neurogenic claudication Discharge Data Allergies Allergy/AdvReac Type Severity Reaction Status Date / Time adhesive tape Allergy Rash Verified 10/24/19 07:00 tetracycline Allergy Rash Verified 10/24/19 07:00 Consultations 10/24/19 11:51 Consult Case Management - Discharge Planning Routine Consult Hospitalist Routine Procedures Performed Operation Date: 10/24/19 07:45 Actual Procedures p L5-S1 Decompression and Fusion, Spinal Cord Monitoring(Not Applicable) - Felix Tovar DO Ordered Studies 10/24/19 07:25 FL lumbar spine 2-3V Routine 10/24/19 07:45 FL fluoroscopy <1hr Routine Hospital Course (1) Neurogenic claudication due to lumbar spinal stenosis: Patient underwent lumbar decompression fusion tolerated this well was taken to orthopedic floor possibly. Postop day 1 pain was controlled leg pain improved. On postop day 2 she was ambulating halls pain well controlled LENORA drain decreasing probably. Subsequently discharged home. Discharge orders instructions from the chart for further review. Total Time Total Time Spent Total Time Spent (In Minutes): 20 minutes Discharge Plan Discharge Items Patient Disposition: Home - Self-Care Reason For Visit: LUMBAR SPINAL STENOSIS WO NEUROGENIC CLAUDICATION Discharge Diagnosis: Lumbar spinal stenosis with neurogenic claudication Activity: As commented below Non-emergency contact: Primary Care Provider Call non-emergency contact if: you have any medication questions Follow-up/Referrals: Shyanne Rivera PA-C [Primary Care Provider] - Diet: Regular Addtl Attending Provider Instructions: ACTIVITY RECOMMENDATIONS: SELF CARE INSTRUCTIONS AFTER THORACIC/LUMBAR FUSIONS 1. You may walk to your tolerance. It is good exercise for your legs and back. Expect some back and intermittent leg aches and pains. 2. You may perform "counter-top" level activities (make a sandwich, paramjit with a project, etc.). 3. No bending or lifting of more than 10 pounds or back twisting of any nature (roll like a log when turning in bed). 4. You may ride in a car for 20-30 minutes at a time. No driving until after your first visit with your doctor. 5. Frequent changes of position and restricting sitting to 30 minutes at a time will help limit the amount of back spasms and stiffness you may experience. 6. You may discontinue the use of ambulatory aids (cane, crutches, etc.) once your strength and confidence allow. 7. You may athletic coordinator the shower and let water strike your incision when you arrive home at least once daily. Do not take a tub bath, sit in a hot tub or go into a swimming pool until after your first recheck in the office. SPECIAL CARE INSTRUCTIONS: VERY IMPORTANT TO READ AND REVIEW A. Your surgical incision has been closed with a cosmetic suture under the skin that will dissolve in about 6 weeks. In 14 days, you can use a pair of clean scissors and cut the suture that is left outside of the skin at the ends of your incision. 1. The small skin tapes can be removed 7 days after surgery if they have not fallen off by that point. 2. You may keep the wound open to air as much as possible to promote healing after post-op day number 5 unless told otherwise by your doctor. 3. If you think the wound looks like it is becoming infected (redness or worsening drainage) and/or you are experiencing fever, chill or worsening back pain and muscle spasms, contact the office so that we may evaluate you as soon as possible. B. Complications are uncommon, but please contact us if you have any signs or symptoms of: 1. wound infection (fever higher than 102.5 degrees F, redness, separation of wound, drainage, or increasing pain from the incision) 2. blood clots in legs (pain, swelling, redness and warmth in legs) 3. urinary tract infection (fever higher than 102.5 degrees F, burning upon urination or increased frequency of urination) 4. nerve problems (inability to walk on your toes or heels, numbness, loss of bowel or bladder control) 5. any other symptoms that concern you C. Please call the office at if you have any concerns or questions about your operation or recovery. D. No smoking! Smoking drastically decreases the chance of a solid fusion. E. Do not take any anti-inflammatory medications (Indocin, Advil, Motrin, Aspirin, Naprosyn, etc.) as these may inhibit the chance of a solid fusion. Tylenol is okay to take for pain. MANAGING PAIN AFTER SPINAL SURGERY 1. Narcotic medication is intended for short-term use and will be provided for surgical pain. Surgical pain usually lasts for a period of 4-6 weeks. Narcotic medication includes Percocet, Vicodin, Darvocet, Tylenol #3 or Lortab. 2. Longer-term pain is more appropriately treated with non-narcotic medication such as Tylenol ES. 3. Muscle spasm is not appropriately treated with narcotics. Muscle relaxers such as Soma, Flexeril or Skelaxin can be used along with Tylenol ES. 4. Remember that we all live with some "aches and pains". This is not unusual or uncommon after an injury or as we get older. a. Back pain is expected and may include muscle spasms for 4 to 6 weeks after surgery. The pain should gradually improve. If the pain worsens for no apparent reason, please contact the office. b. Intermittent leg pain may also be experienced and should not be concerned about unless it worsens for no apparent reason. If so, please contact the office. 5. We will provide appropriate medication within the normal guidelines of their prescribed use. We will also be very cautious and aware of potential abuse and extended duration of patients' medication needs. a. Pain medications are for your comfort and to assist with sleep and rest so that the tissue can heal. They are not provided in order to return to normal activity and should not be used through the day. To do so or worsening pain at night can result from ongoing tissue damage and development of tolerance to the prescribed medicine. 6. Please allow 2-3 days to process refills. Prescriptions will not be mailed but must be picked up at the office. FOLLOW UP VISIT: Keep your scheduled follow-up appointment. Any questions, please call the office at . Pending Studies at Discharge: No Stand-Alone Forms: My [employer], Smoking Cessation Medications and DC Order Prescriptions: New oxycodone 5 mg tablet 5 mg PO Q6H PRN (Reason: pain, severe) Qty: 20 RF: 0 tramadol 50 mg tablet 50 mg PO Q6H PRN (Reason: pain, moderate) Qty: 20 RF: 0 Continued aspirin 81 mg Tablet,Delayed Release (Dr/Ec) 81 mg PO DAILY RF: 0 tolterodine 2 mg Tablet 2 mg PO BID RF: 0 hydrochlorothiazide 12.5 mg tablet 12.5 mg PO DAILY RF: 0 metoprolol succinate 50 mg Tablet Extended Release 24 Hr 75 mg PO QAM RF: 0 allopurinol 300 mg Tablet 300 mg PO QAM RF: 0 pravastatin 20 mg Tablet 20 mg PO QAM RF: 0 Eliquis 5 mg Tablet 5 mg PO BID RF: 0 Macular Health Formula 5-1-7.5 mg Capsule 1 cap PO BID RF: 0 lorazepam 0.5 mg Tablet 0.5 mg sublingual DAILY PRN (Reason: Anxiety) RF: 0 Discharge Orders: Discharge Order (Routine); Ordered 10/26/19 Ordered By: Felix Tovar Admission Data Admit Date/Time: 10/24/19 09:44 Attending Provider: Felix Tovar Admit Provider: Felix Tovar Primary Care Provider: Shyanne Rivera Other Providers: Jere Davies
== END 2019-10-26 15:27 | disposition home or self-care (01) | DRG 455 ==
LOC: ASU 05:59 → 3E 09:44

== ENCOUNTER 2022-10-24 11:57 | Inpatient (IN) ==
--- NOTE | 2022-10-24 12:21 | ED Triage Note ---
Date of Service October 24, 2022 History of Present Illness This patient was briefly evaluated while in triage. An abbreviated physical exam was performed. This patient is a 87-year-old Female who presents to the ED for evaluation of "I'm in a tremendous amount of pain." Pt. states she fell on 10/12/2022, injuring her back and ribs. She was seen by orthopedics and has a bone scan scheduled for Monday in [place], but "I'm in a tremendous amount of pain." Pt. was taking Tylenol for pain, notes last dose was at about 11:00am. Pt. does have history of back surgery with Dr. Tovar. Physical Exam VITALS: Vitals are noted on the nurse's note and reviewed by myself. GENERAL: This is an 87 year old female, in no acute distress, nondiaphoretic, well-developed well-nourished. SKIN: No obvious rashes, edema, erythema HEAD: Normocephalic atraumatic. EYES: Conjunctivae without injection, sclerae without icterus. NECK: No JVD. LUNGS: No retractions or accessory muscle use. MUSCULOSKELETAL: Presents in a wheelchair NEURO: Patient was alert and oriented to person place and time. No focal neurological deficits. Initial orders for labs and / or imaging were placed and patient was placed in the waiting area until a bed is available. Please see further documentation for the full ED course.
[2022-10-24] MEDS ORDERED: oxyCODONE HCL IR 5 MG TAB (IMMEDIATE RELEASE) PO STA (13:01)
--- NOTE | 2022-10-24 13:34 | CT Scan Report ---
CT OF THE HEAD WITHOUT CONTRAST CLINICAL HISTORY: Fall, anticoagulated, headache COMPARISON STUDY: No previous studies for comparison. TECHNIQUE: Helical axial images of the head were obtained without IV contrast. Automated exposure con trol was utilized for the study. A dose lowering technique was utilized adhering to the principles o f ALARA. FINDINGS: No acute intracranial hemorrhage, midline shift or mass effect is present. White matter hyp odensities are suggestive of small vessel disease. The ventricular system is unremarkable. The basal cisterns are patent. No extra-axial collections are present. There are no findings to suggest acute d ural sinus thrombosis or acute territorial infarct. No significant calvarial abnormalities are presen t. Visualized portions of the sinuses and mastoid air cells are clear. IMPRESSION: 1. No acute intracranial findings. 2. No acute calvarial fracture. ACT 112: Negative or not required by law. Electronically signed by: Nasim Sharma M.D. 10/24/2022 1:33 PM
--- NOTE | 2022-10-24 13:43 | CT Scan Report ---
CT chest diagnostic wo con, CT thoracic spine wo con CLINICAL HISTORY: Fall 10/12/2022, persistent jackson rib pain TECHNIQUE: Multidetector row helical CT of the chest was performed. Coronal and sagittal reformations were obtained. Automated dose lowering techniques and/or adjustment according to patient size were u tilized for this exam. Dedicated images of the thoracic spine were obtained. Comparison: Comparison is made to chest radiograph 10/15/2019 FINDINGS: Lungs and pleura: Atelectasis versus scarring is seen in the dependent portions of the lungs. Calcifi ed granulomata are seen. There is a 4 mm nodule in the right middle lobe (series 6 image 157) and a 5 mm nodule in the left lower lobe (image 177). Heart and pericardium: Implanted pacemaker is seen. Cardiac silhouette is otherwise unremarkable. Vessels: Moderate atherosclerotic changes in the aorta and coronary arteries. Mediastinum and tory: Unremarkable. Chest wall and lower neck: Unremarkable. Abdomen: A xseyh-gy-yspfwsck hiatal hernia is seen. Exophytic right renal cyst is partially visualize d. A few bony hemangiomas are seen. Bones: Degenerative changes in the thoracic spine. IMPRESSION: 1. No evidence of acute fractures. Degenerative changes are seen in the spine. 2. A few pulmonary nodules are seen as above. According to Fleischner criteria, no follow-up is req uired in low risk patients, in high-risk patients, a 12 month follow-up CT can be optionally performe d. ACT 112: Negative or not required by law. Electronically signed by: Lonny Francisco M.D. 10/24/2022 1:40 PM
--- NOTE | 2022-10-24 13:48 | CT Scan Report ---
CT SCAN OF THE LUMBAR SPINE WITHOUT IV CONTRAST CLINICAL HISTORY: Low back pain. Radiculopathy. Recent fall. COMPARISON STUDY: MRI of the lumbar spine dated 03/01/2019. TECHNIQUE: CT scan of the lumbar spine is performed from the lower thoracic spine to the sacrum. Imag es are reviewed in the axial, sagittal, and coronal planes. IV contrast was not administered for this examination. A dose lowering technique was utilized adhering to the principles of ALARA. The examina tion is degraded by streak artifact from extensive metallic spinal hardware. CT DOSE: 2818.32 mGy.cm FINDINGS: The skeletal structures are osteopenic. There are acute left transverse process fractures o f L1 and L2. No additional acute fracture is seen involving the lumbar spine. There is a mild acute s uperior plate compression fracture of T11. There may also be minimal acute superior endplate compress ion fracture of T12. Mild paravertebral edema is noted these levels. No retropulsed fragments are see n. Vertebral body height and alignment are maintained throughout the lumbar spine. There is straighte jessica of the lumbar lordosis with reversal centered at L1-L2. Large anterior and lateral marginal oste ophytes are seen throughout. The patient is status post laminectomy and posterior fusion at L2-L3 and at L5-S1. Interpedicular screws are in place. The remaining spinous processes appear intact. There i s no spondylolysis. There is severe disc space narrowing at L1-L2 with associated endplate sclerosis. Severe disc space narrowing is also seen at L5-S1. Mild disc space narrowing is noted at the remaini ng lumbar levels. There is no CT evidence of large disc herniation or high-grade central canal stenos is. There is a large right lateral disc extrusion at L2-L3. This is seen on axial image #189 and like ly impinges on the exiting right L2 nerve root. The visualized sacrum and bony pelvis appear intact. Degenerative sclerosis is noted in the sacroiliac joints. There is fatty atrophy of the paraspinous m usculature. Postsurgical change is seen posterior to the thecal sac. Bilateral renal cysts measure up to 4 cm. A retroaortic left renal vein is incidentally noted. There is advanced atherosclerotic calc ification of the abdominal aorta which is normal in caliber. Diverticulosis is partially visualized i n the sigmoid colon. IMPRESSION: 1. There are acute left transverse process fractures of L1 and L2. 2. No additional acute fracture is seen involving the lumbar spine. 3. There is an acute superior endplate compression fracture of T11 with mild loss of height. No retro pulsed fragments are seen. 4. There is also likely a minimal acute superior endplate compression fracture of T12. 5. Large right lateral disc extrusion at L2-L3. ACT 112: Negative or not required by law. Electronically signed by: Alejandro Daniels M.D. 10/24/2022 1:47 PM
--- NOTE | 2022-10-24 14:10 | XRay Report ---
RIGHT KNEE 3 VIEWS CLINICAL HISTORY: Right knee pain. FINDINGS: AP, crosstable lateral, and sunrise views of the right knee are obtained. No prior studies are available for comparison at the time of dictation. The skeletal structures are osteopenic. No fra cture is seen. There are marginal osteophytes and patellar enthesophytes. Mild to moderate tricompart mental degenerative joint space narrowing is seen throughout the knee. There is a joint effusion. Sof t tissue swelling is present around the knee. There is advanced atherosclerotic calcification of the popliteal artery. IMPRESSION: Soft tissue swelling and joint effusion with no acute fracture identified. Electronically signed by: Alejandro Daniels M.D. 10/24/2022 2:08 PM
--- NOTE | 2022-10-24 14:44 | History & Physical Report ---
Date of Service October 24, 2022 Assessment & Plan (1) Spinal fracture of T11 vertebra: (2) Spinal fracture of T12 vertebra: (3) Fracture of L1 vertebra: (4) L2 vertebral fracture: Plan: - Admit to med tele - Consult ortho spine-Dr. Tovar - possible brace placement? Strength testing intact bilaterally and equal, painful but can perform movements, no neuro deficits - PT/OT consults for rehab - recent hospitalization at [facility] from 08/29/22-08/31/22 for R tibia and fibular fracture where fracture was splinted, no surgery, and was in rehab until 09/20/22. - Pain control with Tylenol syembq-nso-vzmrl, oxycodone p.o. as needed, morphine sulfate IV as needed for breakthrough pain with compression fractures and transverse fractures. - Bowel regimen with MiraLAX, Dulcolax scheduled, last BM was yesterday, patient reports urinary incontinence at baseline, place pure wick (5) Atrial fibrillation: (6) Hypertension: (7) Hyperlipidemia: (8) Pacemaker: Plan: - Anticoagulated on eliquis,last taken this morning, continue for now, rate controlled on amiodarone - Pacemaker placed s/p SSS - Outpatient med rec reports having lisinopril however the patient reports not being on this medication - daughter to confirm however at this time will dc this med. Noted BP is elevated, at 180/100 at noon, likely secondary to pain, monitor - Continue metoprolol 50 mg BID, amiodarone 200 mg daily, lasix 20 mg QAM (9) Diabetes mellitus type 2, diet-controlled: Plan: - ISS with accuchecks achs - Last A1C 7.0 on 08/26/22 - HH/DM diet for now DVT ppx: - teds, scds, Eliquis CODE: Full code Dispo: From home, likely to remain in the hospital x 1-2 days A total of 75 minutes were spent with greater than 50% of that time face to face with the patient, personally reviewing all current laboratories, imaging studies, past medication reconciliation, outpatient chart review, and discussion with specialists to collaborate care for the patient with attending. Please see attending documentation for corrections and/or additions. (10) VAISHNAVI on CPAP: History of Present Illness Chief Complaint: Rib and back pain s/p fall Primary Care Provider: Ministerio Mak MD This is a 87 yo F with PMhx of A-fib on Eliquis, HTN, HLD, osteoporosis, VAISHNAVI, DM type II, spinal stenosis, polyneuropathy, macular degeneration who presents to the hospital with acute worsening rib and low back pain. Pt reports in mid July falling and broke her right tibia and fibula, and was in rehab until mid August. After being home for a few weeks and doing well, she fell while trying to get up from quilting on the ground by using a chair which was on wheels and went down on her right side. The majority of her pain is around her bra line and wraps around her ribs, and also through her lower back. Denies any urinary or bowel incontinence. She trialed walking and was able to but with significant pain, and at home was only using tylenol and topical arnica with minimal relief. Pt was seen last week at Dr. De La Rosa office and was x-rayed without seeing any fractures in the lumbar spine, and was instructed to use a walker. Pt was scheduled for repeat imaging this coming week to assess for fracture again in case it was not seen on the first imaging studies. Her last lumbar surgery was L5-S1 with Dr. Tovar in 2019. She would prefer to see him again if possible. Pt reports pain is currently rated a 5/10 with being administered oxycodone p.o. in the ER. Her daughter is present with her at bedside, Felecia, who assists with the history. Patient is agreeable to rehab and/or brace if recommended. Imaging studies showing T11 and T12 compression fractures, L1 and [address] of the head and chest is negative. Right knee showing soft tissue swelling and joint effusion without acute fracture. Skeletal structures are osteopenic. Allergies Allergy/AdvReac Type Severity Reaction Status Date / Time adhesive tape Allergy Intermediate TEARS SKIN Verified 10/24/22 14:59 dronedarone Allergy Intermediate Rash Verified 10/24/22 14:59 tetracycline AdvReac Intermediate CAUSED Verified 10/24/22 14:59 YEAST INFECTION Home Medications Medication Instructions Recorded Confirmed Type apixaban 5 mg tablet (Eliquis) 5 mg PO BID 11/22/18 10/24/22 History acetaminophen 500 mg tablet 500 mg PO Q6H PRN Pain 10/24/22 10/24/22 History (Tylenol Extra Strength) albuterol sulfate 90 mcg/actuation 2 puff inhalation QID PRN 10/24/22 10/24/22 History aerosol inhaler Shortness Of Breath Or Wheezing amiodarone 200 mg tablet 200 mg PO QAM 10/24/22 10/24/22 History empagliflozin 10 mg tablet 10 mg PO QAM 10/24/22 10/24/22 History (Jardiance) furosemide 20 mg tablet 20 mg PO QAM 10/24/22 10/24/22 History metoprolol succinate 100 mg 50 mg PO BID 10/24/22 10/24/22 History tablet,extended release 24 hr mirtazapine 15 mg tablet 7.5 mg PO HS 10/24/22 10/24/22 History nitroglycerin 0.3 mg sublingual 0.3 mg sublingual DIRECTED PRN 10/24/22 10/24/22 History tablet (Nitrostat) Chest Pain polyethylene glycol 3350 17 4.25 - 8.5 g PO Q OTHER DAY 10/24/22 10/24/22 History gram/dose oral powder (Miralax) vitamins A,C,P-vmxc-adsgqh 2,148 1 tab PO BID 10/24/22 10/24/22 History mcg-113 mg-45 mg-17.4 mg tablet (PreserVision AREDS) Past Med/Surg History Medical History (Updated 10/24/22 @ 17:55 by Ag Lechuga PA-C) Ankylosing spondylitis Atrial fibrillation no cardioversions> has pacer Diabetes mellitus type 2, diet-controlled GERD (gastroesophageal reflux disease) Well controlled and stable History of tuberculosis exposure Possibly as child> unsure if actually had the infection or not- incidental finding on CXR Hyperlipidemia Hypertension Kidney stones passed on own Lyme disease x2 Macular degeneration Pacemaker [employer] checked within last 6 months > [facility] [employer] [facility] checks it. follows Dr. Cedeno at [facility] Sleep apnea CPAP SSS (sick sinus syndrome) Stroke DEC 2017> no residual effects. Double vision initially but no longer> doesn't follow with anyone> Eliquis Surgical History Fusion of spine L2,3 History of anesthesia reaction "HAD A HARD TIME WAKING UP" IN 1962 - NO ISSUES WITH SUBSEQUENT SURGERIES History of appendectomy History of bowel resection History of cardiac cath june 2014> [facility]> no stents> just for check up of Afib/ post ablation History of cataract surgery LEFT. 11/27/2018. PROPOFOL USED, NO ISSUES History of colonoscopy History of hysterectomy History of Alex fundoplication x2 History of radiofrequency ablation (RFA) procedure for cardiac arrhythmia Mar 2014 History of tonsillectomy S/P tendon repair RIGHT HAND x2 and also cyst removal Family History Mother Cancer Father Cancer Social History Smoking Status: Never smoker Second Hand Exposure: No; Do You Dip or Chew Tobacco: No; Hx Alcohol Use: No Hx Substance Use: No Preferred Language: Frisian Communication Ability: Effective Project Facilitator Required: No Beliefs That Will Affect Care: None Current Living Situation: Alone Feels Safe at Home: Yes Safety Concerns: Feels Safe At This Time Assistive Devices: Cane and Walker Review of Systems Review of Systems: Constitutional: No fever, sweats or chills Eyes: No diplopia, no worsening or blurred vision ENT: normal hearing, no trouble swallowing Respiratory: No cough, sputum, dyspnea at rest or on exertion Cardiovascular: No chest pain, tightness or palpitations Abdomen: No pain, nausea, vomiting, diarrhea or constipation Back: As per HPI Musculoskeletal: No joint pain, calf pain, swelling Neurologic: No weakness, numbness/tingling, or balance problems, using walker with ambulation Psychiatric: No anxiety or depression Skin: No rash or itch Physical Exam Physical Exam: General: awake, alert, no apparent distress Head: Normocephalic, atraumatic ENT: PERRL, EOMI, no pharyngeal exudate, mucous membranes moist Chest: Clear to auscultation, on room air, no adventitious breath sounds Cardiac: Regular rate and rhythm, no murmur, no JVD, normal peripheral pulses, good capillary refill Abdominal: NABS x 4 quadrants, soft, nondistended, nontender to palpation, no rebound or guarding Back: no ecchymosis visualized, + pain with palpation across the lower back, no focal point tenderness Extremities: Normal inspection, no peripheral edema or erythema, calfs nontender to palpation Psych: Normal mood and affect Neuro: AAO x 3, strength intact bilaterally and rated 5/5, negative straight leg raise no motor deficits, speech is clear, no peripheral sensory deficits Results & Data Results & Data Vital Signs (Past 12 Hours) Vital Signs Temp Pulse Resp BP Pulse Ox O2 Del Method 10/24/22 12:17 36.6 C 64 18 182/108 H 95 Room Air Code Status & VTE Plan Code Status Full code-discussed with the patient at bedside Supervising Physician Co-Signing Physician Notes I have seen and examined the patient and have discussed the case with the provider above. I agree with the assessment and plan as stated. Patient is a 87-year-old female who underwent a fall 2 weeks ago with worsening rib and low back pain. Work-up revealed approximately 4 fractures in her back with lumbar disc extrusion and L2-L3 space. Initially upon arrival to the floor blood pressure was elevated to the 180s. This improved with additional morphine and Tylenol for appropriate pain control. She denies any sensation loss and is feeling better. She is hemodynamically stable and afebrile. She is well- nourished and well-developed. She is awake alert and in no apparent distress. Physical exam otherwise as noted above. Lab work and imaging reviewed. Agree with continuing narcotics and Tylenol for pain control and consulting orthopedic spine. PT/OT consults. DO Tom
--- NOTE | 2022-10-24 15:52 | Emergency Department Note ---
History of Present Illness General Chief complaint: Fall Stated complaint: FALL Time Seen by Provider: 10/24/22 12:25 History of Present Illness Maximum Pain Intensity: 9 This is an 87-year-old female that presents to the emergency department via private vehicle with complaints of "fall". The patient notes that on 10/12/2022 she fell noting that her right foot "gave out" and she fell onto her right side. She notes mid and low back pain since that time. She notes the pain at times will radiate around into her bilateral ribs. She denies striking the head or loss of consciousness. No neck pain. She does note a right frontal headache at times since the fall. No chest pain or shortness of breath. No abdominal pain. The patient does note that she currently is anticoagulated on Eliquis. She notes it took her 30 minutes to get a bed today secondary to the pain. She did take acetaminophen at 11 AM today. She notes a history of spine surgeries x2 most recently with Dr. Tovar a few years ago. She notes that she is scheduled for a scan this coming Monday with her orthopedist but came here today noting worsening pain. Home Medications Medication Instructions Recorded Confirmed Type apixaban 5 mg tablet (Eliquis) 5 mg PO BID 11/22/18 10/24/22 History acetaminophen 500 mg tablet 500 mg PO Q6H PRN Pain 10/24/22 10/24/22 History (Tylenol Extra Strength) albuterol sulfate 90 mcg/actuation 2 puff inhalation QID PRN 10/24/22 10/24/22 History aerosol inhaler Shortness Of Breath Or Wheezing amiodarone 200 mg tablet 200 mg PO QAM 10/24/22 10/24/22 History empagliflozin 10 mg tablet 10 mg PO QAM 10/24/22 10/24/22 History (Jardiance) furosemide 20 mg tablet 20 mg PO QAM 10/24/22 10/24/22 History metoprolol succinate 100 mg 50 mg PO BID 10/24/22 10/24/22 History tablet,extended release 24 hr mirtazapine 15 mg tablet 7.5 mg PO HS 10/24/22 10/24/22 History nitroglycerin 0.3 mg sublingual 0.3 mg sublingual DIRECTED PRN 10/24/22 10/24/22 History tablet (Nitrostat) Chest Pain polyethylene glycol 3350 17 4.25 - 8.5 g PO Q OTHER DAY 10/24/22 10/24/22 H istory gram/dose oral powder (Miralax) vitamins A,C,C-ipgm-ehudzc 2,148 1 tab PO BID 10/24/22 10/24/22 History mcg-113 mg-45 mg-17.4 mg tablet (PreserVision AREDS) Allergies Allergy/AdvReac Type Severity Reaction Status Date / Time adhesive tape Allergy Intermediate TEARS SKIN Verified 10/24/22 14:59 dronedarone Allergy Intermediate Rash Verified 10/24/22 14:59 tetracycline AdvReac Intermediate CAUSED Verified 10/24/22 14:59 YEAST INFECTION Past Med/Surg History Medical History (Updated 10/24/22 @ 17:55 by Ag Lechuga PA-C) Ankylosing spondylitis Atrial fibrillation no cardioversions> has pacer Diabetes mellitus type 2, diet-controlled GERD (gastroesophageal reflux disease) Well controlled and stable 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 follows Dr. Cedeno at [facility] Sleep apnea CPAP SSS (sick sinus syndrome) Stroke DEC 2017> no residual effects. Double vision initially but no longer> doesn't follow with anyone> Eliquis Surgical History Fusion of spine L2,3 History of anesthesia reaction "HAD A HARD TIME WAKING UP" IN 1962 - NO ISSUES WITH SUBSEQUENT SURGERIES History of appendectomy History of bowel resection History of cardiac cath june 2014> [facility]> no stents> just for check up of Afib/ post ablation History of cataract surgery LEFT. 11/27/2018. PROPOFOL USED, NO ISSUES History of colonoscopy History of hysterectomy History of Alex fundoplication x2 History of radiofrequency ablation (RFA) procedure for cardiac arrhythmia Mar 2014 History of tonsillectomy S/P tendon repair RIGHT HAND x2 and also cyst removal Family History Mother Cancer Father Cancer Social History Smoking Status: Never smoker Second Hand Exposure: No; Do You Dip or Chew Tobacco: No; Hx Alcohol Use: No Hx Substance Use: No Preferred Language: Slovak Communication Ability: Effective Order Checker Required: No Beliefs That Will Affect Care: None Current Living Situation: Alone Feels Safe at Home: Yes Safety Concerns: Feels Safe At This Time Assistive Devices: Cane and Walker Review of Systems A total of 10 systems reviewed and were otherwise negative Physical Exam Vital Signs Vital Signs - 24 hr 10/24/22 12:17 Temperature 36.6 C Temperature Source Temporal Artery Scan Pulse Rate 64 Pulse Rhythm Regular Pulse Strength Normal Respiratory Rate 18 Respiratory Effort / Characteristics Non-Labored Respiratory Depth Normal Respiratory Pattern Regular Blood Pressure 182/108 H Blood Pressure Mean 132 Blood Pressure Position Sitting Pulse Oximetry 95 Oxygen Delivery Method Room Air Sepsis Recent Fever Within 48 Hours No Sepsis New/Unexplained Change in Mental Status No Sepsis Action Taken by Nursing No Action Required VITAL SIGNS - Vital signs and nursing notes were reviewed. Stable and afebrile. GENERAL -87-year-old female appearing her stated age who is in no acute distress. Communicates well with provider and answers questions appropriately. SKIN - Without rashes. HEAD - NC/AT. EYES - PERRL with EOMI bilaterally. Sclera anicteric. EARS - No deformities of external structures noted on gross examination bilaterally. NOSE - Midline and without cyanosis. No epistaxis or purulent drainage noted. Septum midline without deviation or septal hematoma noted. MOUTH/OROPHARYNX - Without perioral cyanosis. NECK - Neck with FROM. No nuchal rigidity. LUNGS -clear to auscultation CARDIAC - RRR ABDOMEN - Abdominal contour normal without pulsations or visible masses. BS normoactive all four quadrants. No tenderness, palpable masses, hepatosplenomegaly, or ascites noted. MUSCULOSKELETALthere is tenderness overlying the spinous processes of the inferior T-spine and superior L-spine. EXTREMITIES - No clubbing or peripheral cyanosis. +5/5 strength noted in UE/LE bilaterally. NEUROLOGIC - Cranial nerves II through XII grossly intact. PSYCH - A&O, and cooperates fully with examiner. Pt is very pleasant and interacts well with examiner. Course Administered Medications Acetaminophen (Acetaminophen 500 Mg Tab) 1,000 mg PO Q8H CHRISTINA Stop: 11/23/22 18:24 Last Admin: 10/25/22 02:25 Dose: 1,000 mg Documented By: Admin: 10/24/22 19:15 Dose: 1,000 mg Documented By: DARINEL Bisacodyl (Bisacodyl 5 Mg Tabec) 5 mg PO DAILY CHRISTINA Stop: 11/23/22 18:24 Last Admin: 10/24/22 18:36 Dose: Not Given Documented By: DEEJAY Insulin Aspart (Insulin Aspart Per Unit Charge) 0 units SC ACHS CHRISTINA Stop: 11/23/22 18:59 Last Admin: 10/24/22 22:28 Dose: Not Given Documented By: Admin: 10/24/22 19:18 Dose: Not Given Documented By: DARINEL Polyethylene Glycol (Polyethylene (Miralax) 17 Gm Pack) 17 gm PO DAILY CHRISTINA Stop: 11/23/22 18:24 Last Admin: 10/24/22 20:12 Dose: 17 gm Documented By: DARINEL Discontinued Medications Morphine Sulfate (Morphine Sulfate 4 Mg/Ml 1 Ml Carp\\Vial) 4 mg IV NOW STA Stop: 10/24/22 19:53 Last Admin: 10/24/22 20:12 Dose: 4 mg Documented By: DARINEL Oxycodone HCl (Oxycodone Hcl Ir 5 Mg Tab (Immediate Release)) 5 mg PO NOW STA Stop: 10/24/22 13:02 Last Admin: 10/24/22 13:04 Dose: 5 mg Documented By: NISH Medical Decision Making Laboratory Data 10/24/22 16:18 10/24/22 16:11 Lab Results 10/24/22 10/24/22 10/24/22 Range/Units 16:11 16:18 Unknown WBC 6.28 (4.8-10.8) K/ul RBC 4.45 (4.20-5.40) M/uL Hgb 13.6 (12.0-16.0) g/dl Hct 41.0 (37.0-47.0) % MCV 92.1 (80.0-100.0) fL MCH 30.6 (25.0-34.0) pg MCHC 33.2 (32.0-36.0) g/dL RDW Std Deviation 54.4 H (36.4-46.3) fL RDW Coeff of Chuy 16.1 H (11.5-14.5) % Plt Count 222 (130-400) K/uL MPV 8.7 L (9.4-12.4) fL Immature Gran % (Auto) 0.5 % Neut % (Auto) 66.6 % Lymph % (Auto) 22.0 % [place] % (Auto) 8.1 % Eos % (Auto) 2.5 % Baso % (Auto) 0.3 % Neut # (Auto) 4.18 (1.40-6.50) K/uL Lymph # (Auto) 1.38 (1.2-3.4) K/uL [place] # (Auto) 0.51 (0.11-0.59) K/uL Eos # (Auto) 0.16 (0-0.50) K/uL Baso # (Auto) 0.02 (0-0.2) K/uL Immature Gran # (Auto) 0.03 (0.01-0.20) K/uL Sodium 139 (136-145) mmol/L Potassium 4.3 (3.5-5.1) mmol/L Chloride 105 (98-107) mmol/L Carbon Dioxide 25 (21-32) mmol/L Anion Gap 9 (3-11) BUN 22 (6-23) mg/dl Creatinine 0.84 (0.6-1.2) mg/dl Est Cr Clr Drug Dosing Not Reportable Est GFR ( Amer) 72.9 ml/min Est GFR (Non-Af Amer) 62.9 ml/min BUN/Creatinine Ratio 26.2 H (10-20) Glucose 88 (70-99(Fasting)) mg/dl Calcium 10.1 (8.6-10.3) mg/dl Total Bilirubin 0.6 (0.2-1.0) mg/dl AST 14 (13-39) U/L ALT 6 L (7-52) U/L Alkaline Phosphatase 107 H (34-104) U/L Total Protein 7.7 (6.0-8.3) gm/dl Albumin 3.9 (3.4-5.0) gm/dl Globulin 3.8 (2.5-4.0) gm/dl Albumin/Globulin Ratio 1.0 (0.9-2) SARS-CoV-2, RNA, NAAT NEGATIVE (NEGATIVE) Imaging Data Radiologist's Impression: Chest CT 10/24/22 12:21 CT chest diagnostic wo con, CT thoracic spine wo con CLINICAL HISTORY: Fall 10/12/2022, persistent jackson rib pain TECHNIQUE: Multidetector row helical CT of the chest was performed. Coronal and sagittal reformations were obtained. Automated dose lowering techniques and/or adjustment according to patient size were utilized for this exam. Dedicated images of the thoracic spine were obtained. Comparison: Comparison is made to chest radiograph 10/15/2019 FINDINGS: Lungs and pleura: Atelectasis versus scarring is seen in the dependent portions of the lungs. Calcified granulomata are seen. There is a 4 mm nodule in the right middle lobe (series 6 image 157) and a 5 mm nodule in the left lower lobe (image 177). Heart and pericardium: Implanted pacemaker is seen. Cardiac silhouette is otherwise unremarkable. Vessels: Moderate atherosclerotic changes in the aorta and coronary arteries. Mediastinum and tory: Unremarkable. Chest wall and lower neck: Unremarkable. Abdomen: A [id number] hiatal hernia is seen. Exophytic right renal cyst is partially visualized. A few bony hemangiomas are seen. Bones: Degenerative changes in the thoracic spine. IMPRESSION: 1. No evidence of acute fractures. Degenerative changes are seen in the spine. 2. A few pulmonary nodules are seen as above. According to Derrick hair, no follow-up is required in low risk patients, in high-risk patients, a 12 month follow-up CT can be optionally performed. ACT 112: Negative or not required by law. Electronically signed by: Lonny Francisco M.D. 10/24/2022 1:[address] 10/24/22 12:21 CT SCAN OF THE LUMBAR SPINE WITHOUT IV CONTRAST CLINICAL HISTORY: Low back pain. Radiculopathy. Recent fall. COMPARISON STUDY: MRI of the lumbar spine dated 03/01/2019. TECHNIQUE: CT scan of the lumbar spine is performed from the lower thoracic spine to the sacrum. Images are reviewed in the axial, sagittal, and coronal planes. IV contrast was not administered for this examination. A dose lowering technique was utilized adhering to the principles of ALARA. The examination is degraded by streak artifact from extensive metallic spinal hardware. CT DOSE: 2818.32 mGy.cm FINDINGS: The skeletal structures are osteopenic. There are acute left trans verse process fractures of L1 and L2. No additional acute fracture is seen involving the lumbar spine. There is a mild acute superior plate compression fracture of T11. There may also be minimal acute superior endplate compression fracture of T12. Mild paravertebral edema is noted these levels. No retropulsed fragments are seen. Vertebral body height and alignment are maintained throughout the lumbar spine. There is straightening of the lumbar lordosis with reversal centered at L1-L2. Large anterior and lateral marginal osteophytes are seen throughout. The patient is status post laminectomy and posterior fusion at L2-L3 and at L5-S1. Interpedicular screws are in place. The remaining spinous processes appear intact. There is no spondylolysis. There is severe disc space narrowing at L1-L2 with associated endplate sclerosis. Severe disc space narrowing is also seen at L5-S1. Mild disc space narrowing is noted at the remaining lumbar levels. There is no CT evidence of large disc herniation or high-grade central canal stenosis. There is a large right lateral disc extrusion at L2-L3. This is seen on axial image #189 and likely impinges on the exiting right L2 nerve root. The visualized sacrum and bony pelvis appear intact. Degenerative sclerosis is noted in the sacroiliac joints. There is fatty atrophy of the paraspinous musculature. Postsurgical change is seen posterior to the thecal sac. Bilateral renal cysts measure up to 4 cm. A retroaortic left renal vein is incidentally noted. There is advanced atherosclerotic calcification of the abdominal aorta which is normal in caliber. Diverticulosis is partially visualized in the sigmoid colon. IMPRESSION: 1. There are acute left transverse process fractures of L1 and L2. 2. No additional acute fracture is seen involving the lumbar spine. 3. There is an acute superior endplate compression fracture of T11 with mild loss of height. No retropulsed fragments are seen. 4. There is also likely a minimal acute superior endplate compression fracture of T12. 5. Large right lateral disc extrusion at L2-L3. ACT 112: Negative or not required by law. Electronically signed by: Alejandro Daniels M.D. 10/24/2022 1:47 PM Knee X-Ray 10/24/22 12:46 RIGHT KNEE 3 VIEWS CLINICAL HISTORY: Right knee pain. FINDINGS: AP, crosstable lateral, and sunrise views of the right knee are obtained. No prior studies are available for comparison at the time of di ctation. The skeletal structures are osteopenic. No fracture is seen. There are marginal osteophytes and patellar enthesophytes. Mild to moderate tricompartmental degenerative joint space narrowing is seen throughout the knee. There is a joint effusion. Soft tissue swelling is present around the knee. There is advanced atherosclerotic calcification of the popliteal artery. IMPRESSION: Soft tissue swelling and joint effusion with no acute fracture identified. Electronically signed by: Alejandro Daniels M.D. 10/24/2022 2:[address] 10/24/22 13:00 CT OF THE HEAD WITHOUT CONTRAST CLINICAL HISTORY: Fall, anticoagulated, headache COMPARISON STUDY: No previous studies for comparison. TECHNIQUE: Helical axial images of the head were obtained without IV contrast. Automated exposure control was utilized for the study. A dose lowering technique was utilized adhering to the principles of ALARA. FINDINGS: No acute intracranial hemorrhage, midline shift or mass effect is present. White matter hypodensities are suggestive of small vessel disease. The ventricular system is unremarkable. The basal cisterns are patent. No extra- axial collections are present. There are no findings to suggest acute dural sinus thrombosis or acute territorial infarct. No significant calvarial abnormalities are present. Visualized portions of the sinuses and mastoid air cells are clear. IMPRESSION: 1. No acute intracranial findings. 2. No acute calvarial fracture. ACT 112: Negative or not required by law. Electronically signed by: Nasim Sharma M.D. 10/24/2022 1:[address] 10/24/22 13:00 CT chest diagnostic wo con, CT thoracic spine wo con CLINICAL HISTORY: Fall 10/12/2022, persistent jackson rib pain TECHNIQUE: Multidetector row helical CT of the chest was performed. Coronal and sagittal reformations were obtained. Automated dose lowering techniques and/or adjustment according to patient size were utilized for this exam. Dedicated images of the thoracic spine were obtained. Comparison: Comparison is made to chest radiograph 10/15/2019 FINDINGS: Lungs and pleura: Atelectasis versus scarring is seen in the dependent portions of the lungs. Calcified granulomata are seen. There is a 4 mm nodule in the right middle lobe (series 6 image 157) and a 5 mm nodule in the left lower lobe (image 177). Heart and pericardium: Implanted pacemaker is seen. Cardiac silhouette is otherwise unremarkable. Vessels: Moderate atherosclerotic changes in the aorta and coronary arteries. Mediastinum and tory: Unremarkable. Chest wall and lower neck: Unremarkable. Abdomen: A [id number] hiatal hernia is seen. Exophytic right renal cyst is partially visualized. A few bony hemangiomas are seen. Bones: Degenerative changes in the thoracic spine. IMPRESSION: 1. No evidence of acute fractures. Degenerative changes are seen in the spine. 2. A few pulmonary nodules are seen as above. According to Fleischner criteria, no follow-up is required in low risk patients, in high-risk patients, a 12 month follow-up CT can be optionally performed. ACT 112: Negative or not required by law. Electronically signed by: Lonny Francisco M.D. 10/24/2022 1:40 PM MDM Narrative Patient was seen and evaluated as above in room D06. Review was performed of triage nursing notes and vital signs. I did review pertinent previous visits and patient history. After obtaining a thorough history and physical examination the above work up was performed. Patient presents to us today for assessment of injury status post fall. She clinically is well-appearing and nontoxic but does appear to be in pain predominantly in the mid/low back region. Options of care were discussed with the patient. Oral analgesia provided. CT imaging was obtained of the head noting the headache in the setting of anticoagulant status post fall as well as CT imaging of the T-spine, L-spine and chest CT. Results as above. The patient does have fractures noted on the L- spine at L1 and L2 but also superior endplate compression fracture of T11 and likely 1 of T12 as well with a large disc extrusion at L2-L3. I did discuss these findings with the patient's orthopedic surgeon, Dr. Tovar. We will proceed with inpatient management to help with the patient's pain control, PT/OT, brace, Ortho evaluation. IV access was established. Labs were drawn. No leukocytosis or concerning anemia. No emergent metabolic disturbance. COVID testing negative. Case discussed with the hospitalist service. Please refer to further documentation regarding her stay. GCS: 15 In the evaluation and treatment of this patient the following differential diagnoses were entertained: Fracture, dislocation, subluxation, contusion, sprain, strain, among others. Attending Attestation: Hilda Villarreal MD independently saw and evaluated this patient and agree with history and physical is otherwise documented by the physician account management assistant. See their note for full details. Patient resting in bed. Discomfort normally in the back region and did suffer a fall recently. CT imaging with evidence of some likely nonoperative fractures. No evidence of any significant acute n eurological deficit at this time. Given her age discussed with her staying for further pain management optimization. Has followed with Dr. Tovar before. Impression & Plan Fall, Spinal fracture of T11 vertebra, Spinal fracture of T12 vertebra, Fracture of L1 vertebra, L2 vertebral fracture, Back pain Discharge Plan Visit Data Chief Complaint: Fall Stated Complaint: FALL ED Provider: [facility] Midlevel Provider: Ag Lechuga Discharge Problem: Fall, Spinal fracture of T11 vertebra, Spinal fracture of T12 vertebra, Fracture of L1 vertebra, L2 vertebral fracture, Back pain Patient Disposition: Admitted As Inpatient Condition: Good Discharge Instructions Interventions: ED Discharge Assessment Last Done: 10/24/22 16:46
[2022-10-24 16:34] LABS: Basophils # (auto) 0.02 K/uL (0-0.2); Basophils % (auto) 0.3 %; Eosinophils # (auto) 0.16 K/uL (0-0.50); Eosinophils % (auto) 2.5 %; Hemoglobin 13.6 g/dl (12.0-16.0); Immature Granulocytes # (auto) 0.03 K/uL (0.01-0.20); Immature Granulocytes % (auto) 0.5 %; Lymphocytes # (auto) 1.38 K/uL (1.2-3.4); Mean Corpuscular Hemoglobin 30.6 pg (25.0-34.0); Mean Corpuscular Hgb Conc 33.2 g/dL (32.0-36.0); Mean Corpuscular Volume 92.1 fL (80.0-100.0); Mean Platelet Volume 8.7 fL (9.4-12.4); Monocytes # (auto) 0.51 K/uL (0.11-0.59); Monocytes % (auto) 8.1 %; Neutrophils # (auto) 4.18 K/uL (1.40-6.50); Neutrophils % (auto) 66.6 %; Platelet Count 222 K/uL (130-400); RDW Coefficient of Variation 16.1 % (11.5-14.5); RDW Standard Deviation 54.4 fL (36.4-46.3); Red Blood Count 4.45 M/uL (4.20-5.40); White Blood Count 6.28 K/ul (4.8-10.8)
[2022-10-24 16:50] LABS: Alanine Aminotransferase 6 U/L (7-52); Albumin Level 3.9 gm/dl (3.4-5.0); Alkaline Phosphatase 107 U/L (34-104); Anion Gap 9 (3-11); Aspartate Aminotransferase 14 U/L (13-39); BUN Creatinine Ratio 26.2 (10-20); Bilirubin,Total 0.6 mg/dl (0.2-1.0); Blood Urea Nitrogen 22 mg/dl (6-23); Calcium 10.1 mg/dl (8.6-10.3); Carbon Dioxide 25 mmol/L (21-32); Chloride 105 mmol/L (98-107); Est GFR (African American) 72.9 ml/min; Est GFR (Non-African American) 62.9 ml/min; Globulin 3.8 gm/dl (2.5-4.0); Glucose 88 mg/dl (70-99(Fasting)); Potassium 4.3 mmol/L (3.5-5.1); Sodium 139 mmol/L (136-145); Total Protein 7.7 gm/dl (6.0-8.3)
[2022-10-24] MEDS ORDERED: ONDANSETRON INJ 2 MG/ML 2 ML VIAL IV PRN (18:25)
[2022-10-24] MEDS ORDERED: CARBOHYDRATES FOR HYPOGLYCEMIA PO PRN (18:25)
[2022-10-24] MEDS ORDERED: GLUCOSE 10 TAB/TUBE PO PRN (18:25)
[2022-10-24] MEDS ORDERED: GLUCOSE 40% GEL 15 GM TUBE PO PRN (18:25)
[2022-10-24] MEDS ORDERED: GLUCAGON FOR INJ 1 MG VIAL SQ PRN (18:25)
[2022-10-24] MEDS ORDERED: DEXTROSE 50% 50 ML SYRINGE IV PRN (18:25)
[2022-10-24] MEDS ORDERED: MoRPHine SULFATE 2 MG/ML CARP IV PRN ×2 (18:25→19:45)
[2022-10-24] MEDS: bisacodyL 5 MG TABEC PO SCH (18:36)
[2022-10-24] MEDS: ACETAMINOPHEN 500 MG TAB PO SCH (19:15)
[2022-10-24] MEDS: INSULIN ASPART PER UNIT CHARGE SC SCH ×2 (19:18→22:28)
[2022-10-24] MEDS ORDERED: MoRPHine SULFATE 4 MG/ML 1 ML CARP\\VIAL IV STA (19:52)
[2022-10-24] MEDS: POLYETHYLENE (MIRALAX) 17 GM PACK PO SCH (20:12)
[2022-10-25] MEDS: ACETAMINOPHEN 500 MG TAB PO SCH ×3 (02:25→20:18)
[2022-10-25 05:59] LABS: Hematocrit (blood only) 42.3 % (37.0-47.0); Hemoglobin 13.6 g/dl (12.0-16.0); Mean Corpuscular Hgb Conc 32.2 g/dL (32.0-36.0); Mean Corpuscular Volume 93.2 fL (80.0-100.0); Mean Platelet Volume 8.6 fL (9.4-12.4); Platelet Count 208 K/uL (130-400); RDW Coefficient of Variation 16.2 % (11.5-14.5); RDW Standard Deviation 55.1 fL (36.4-46.3); Red Blood Count 4.54 M/uL (4.20-5.40); White Blood Count 6.33 K/ul (4.8-10.8)
[2022-10-25 06:16] LABS: Calcium 9.8 mg/dl (8.6-10.3); Creatinine Clr Calc Pharmacy 49.3 ml/min; Est GFR (Non-African American) 58.7 ml/min; Potassium 3.8 mmol/L (3.5-5.1)
[2022-10-25 08:56] LABS: Estimated Average Glucose 143 mg/dl; Hemoglobin A1C 6.6 % (4.5-5.6)
[2022-10-25] MEDS: POLYETHYLENE (MIRALAX) 17 GM PACK PO SCH (09:05)
[2022-10-25] MEDS: bisacodyL 5 MG TABEC PO SCH (09:05)
[2022-10-25] MEDS: INSULIN ASPART PER UNIT CHARGE SC SCH (09:05)
--- NOTE | 2022-10-25 11:04 | Consultation ---
Date of Consultation October 25, 2022 Assessment & Plan (1) Spinal fracture of T12 vertebra: Dr. Tovar has reviewed case and imaging. She has acute T11, T12 and lumbar TP fractures s/p fall. Treatment is conservative. I will order a TLSO brace to be worn when ambulating/standing. May remove to sit,sleep. Ambulate as yan. No lifting greater than 5 lbs. Her RLE paresthesias are most likely related to her R ankle fx. SHe does not radicular pain. PT/OT . May need short rehab stay upon discharge. Follow up in our office in 2 weeks History of Present Illness Reason for Consultation: compression fractures Attending Physician: Reji Crowley MD History of Present Illness This is a pleasant 87 yo fenale known to us. She has had two previous lumbar fusions. The first (L2-3) was performed in [place]. THe second was performed by Dr Tovar (L5-S1). SHe fell at home 08/28 which resulted in a right ankle fracture treated nonoperatively. On 10/12, while in the kitchen, she pivoted to go from the sink to the refrigerator and fell. She had back pain at the time but it was managed with Tylenol and ice at home. On Monday 10/23 she lifted 2 heavy laundry baskets and her back pain increased so she presented to the ER. SHe has RLE paresthesia along the lateral calf that started when she fractured her ankle. No radicular pain. Typically she ambulates independently and lives alone. SHe is quite active Allergies Allergy/AdvReac Type Severity Reaction Status Date / Time adhesive tape Allergy Intermediate TEARS SKIN Verified 10/24/22 14:59 dronedarone Allergy Intermediate Rash Verified 10/24/22 14:59 tetracycline AdvReac Intermediate CAUSED Verified 10/24/22 14:59 YEAST INFECTION Home Medications Medication Instructions Recorded Confirmed Type apixaban 5 mg tablet (Eliquis) 5 mg PO BID 11/22/18 10/24/22 History acetaminophen 500 mg tablet 500 mg PO Q6H PRN Pain 10/24/22 10/24/22 History (Tylenol Extra Strength) albuterol sulfate 90 mcg/actuation 2 puff inhalation QID PRN 10/24/22 10/24/22 History aerosol inhaler Shortness Of Breath Or Wheezing amiodarone 200 mg tablet 200 mg PO QAM 10/24/22 10/24/22 History empagliflozin 10 mg tablet 10 mg PO QAM 10/24/22 10/24/22 History (Jardiance) furosemide 20 mg tablet 20 mg PO QAM 10/24/22 10/24/22 History metoprolol succinate 100 mg 50 mg PO BID 10/24/22 10/24/22 History tablet,extended release 24 hr mirtazapine 15 mg tablet 7.5 mg PO HS 10/24/22 10/24/22 History nitroglycerin 0.3 mg sublingual 0.3 mg sublingual DIRECTED PRN 10/24/22 10/24/22 History tablet (Nitrostat) Chest Pain polyethylene glycol 3350 17 4.25 - 8.5 g PO Q OTHER DAY 10/24/22 10/24/22 History gram/dose oral powder (Miralax) vitamins A,C,E-pjre-otvswi 2,148 1 tab PO BID 10/24/22 10/24/22 History mcg-113 mg-45 mg-17.4 mg tablet (PreserVision AREDS) Patient History Medical History Ankylosing spondylitis Atrial fibrillation no cardioversions> has pacer Diabetes mellitus type 2, diet-controlled GERD (gastroesophageal reflux disease) Well controlled and stable History of tuberculosis exposure Possibly as child> unsure if actually had the infection or not- incidental finding on CXR Hyperlipidemia Hypertension Kidney stones passed on own Lyme disease x2 Macular degeneration Pacemaker Topping [employer] checked within last 6 months > [employer] [facility] checks it. follows Dr. Cedeno at [facility] Sleep apnea CPAP SSS (sick sinus syndrome) Stroke DEC 2017> no residual effects. Double vision initially but no longer> doesn't follow with anyone> Eliquis Surgical History Fusion of spine L2,3 History of anesthesia reaction "HAD A HARD TIME WAKING UP" IN 1962 - NO ISSUES WITH SUBSEQUENT SURGERIES History of appendectomy History of bowel resection History of cardiac cath june 2014> [facility]> no stents> just for check up of Afib/ post ablation History of cataract surgery LEFT. 11/27/2018. PROPOFOL USED, NO ISSUES History of colonoscopy History of hysterectomy History of Alex fundoplication x2 History of radiofrequency ablation (RFA) procedure for cardiac arrhythmia Mar 2014 History of tonsillectomy S/P tendon repair RIGHT HAND x2 and also cyst removal Family History Mother Cancer Father Cancer Social History Smoking Status: Never smoker Second Hand Exposure: No; Do You Dip or Chew Tobacco: No; Hx Alcohol Use: No Hx Substance Use: No Preferred Language: Guyanese Communication Ability: Effective Roller Bearing Inspector Required: No Beliefs That Will Affect Care: None Current Living Situation: Alone Feels Safe at Home: Yes Safety Concerns: Feels Safe At This Time Assistive Devices: Cane, Glasses and Walker Review of Systems Review of Systems: All systems reviewed & are unremarkable except as noted in HPI & below Physical Exam Physical Exam: She is A&Ox3 NAD Strength is 5/5 B/L lower extremities Negative SLR Negative log rolling. Rolling over reproduces her thoracolumbar pain. tender midline thoracolumbar region Results & Data Vital Signs (Past 12 Hours) Vital Signs Temp Pulse Resp BP Pulse Ox O2 Del Method 10/25/22 07:13 36.6 C 62 14 173/81 H 95 Room Air 10/24/22 23:59 125/81 Diagnostic Findings [place], [place] [phone] CT Scan Report Patient:REGI MARSH Admit Date:10/24/22 MR#:[id number] Address1:[address] [place] [address] Acct ID:[id number] Address2: Date:1935 [facility] Zip:[place] [address] Age:87 Location:ED Sex:F Room/Bed: Att Phy: Diagnosis:FALL Daniela Phy:Ministerio Mak MD Service Date:10/24/22 [facility] Phy: Interpreting Phy:Alejandro Daniels MDAdmit Phy: Ordering Phy:Phylicia Bloom PA-C cc: ~ CT SCAN OF THE LUMBAR SPINE WITHOUT IV CONTRAST CLINICAL HISTORY: Low back pain. Radiculopathy. Recent fall. COMPARISON STUDY: MRI of the lumbar spine dated 03/01/2019. TECHNIQUE: CT scan of the lumbar spine is performed from the lower thoracic spine to the sacrum. Images are reviewed in the axial, sagittal, and coronal planes. IV contrast was not administered for this examination. A dose lowering technique was utilized adhering to the principles of ALARA. The examination is degraded by streak artifact from extensive metallic spinal hardware. CT DOSE: 2818.32 mGy.cm FINDINGS: The skeletal structures are osteopenic. There are acute left transverse process fractures of L1 and L2. No additional acute fracture is seen involving the lumbar spine. There is a mild acute superior plate compression fracture of T11. There may also be minimal acute superior endplate compression fracture of T12. Mild paravertebral edema is noted these levels. No retropulsed fragments are seen. Vertebral body height and alignment are maintained throughout the lumbar spine. There is straightening of the lumbar lordosis with reversal centered at L1-L2. Large anterior and lateral marginal osteophytes are seen throughout. The patient is status post laminectomy and posterior fusion at L2-L3 and at L5-S1. Interpedicular screws are in place. The remaining spinous processes appear intact. There is no spondylolysis. There is severe disc space narrowing at L1-L2 with associated endplate sclerosis. Severe disc space narrowing is also seen at L5-S1. Mild disc space narrowing is noted at the remaining lumbar levels. There is no CT evidence of large disc herniation or high-grade central canal stenosis. There is a large right lateral disc extrusion at L2-L3. This is seen on axial image #189 and likely impinges on the exiting right L2 nerve root. The visualized sacrum and bony pelvis appear intact. Degenerative sclerosis is noted in the sacroiliac joints. There is fatty atrophy of the paraspinous musculature. Postsurgical change is seen posterior to the thecal sac. Bilateral renal cysts measure up to 4 cm. A retroaortic left renal vein is incidentally noted. There is advanced atherosclerotic calcification of the abdominal aorta which is normal in caliber. Diverticulosis is partially visualized in the sigmoid colon. IMPRESSION: 1. There are acute left transverse process fractures of L1 and L2. 2. No additional acute fracture is seen involving the lumbar spine. 3. There is an acute superior endplate compression fracture of T11 with mild loss of height. No retropulsed fragments are seen. 4. There is also likely a minimal acute superior endplate compression fracture of T12. 5. Large right lateral disc extrusion at L2-L3. ACT 112: Negative or not required by law. Electronically signed by: Alejandro Daniels M.D. 10/24/2022 1:47 PM Dictated:10/24/22 1333 Transcribed: 10/24/221332 [place], [place] [phone] CT Scan Report Patient:REGI MARSH Admit Date:10/24/22 MR#:[id number] Address1:[address] [place] [address] Acct ID:[id number] Address2: Date:1935 [facility] Zip:[place] [address] Age:87 Location:ED Sex:F Room/Bed: Att Phy: Diagnosis:FALL Daniela Phy:Ministerio Mak MD Service Date:10/24/22 Fam Phy: Interpreting Phy:Lonny Francisco MDAdmit Phy: Ordering Phy:Ag Lechuga PA-C cc: ~ CT chest diagnostic wo con, CT thoracic spine wo con CLINICAL HISTORY: Fall 10/12/2022, persistent jackson rib pain TECHNIQUE: Multidetector row helical CT of the chest was performed. Coronal and sagittal reformations were obtained. Automated dose lowering techniques and/or adjustment according to patient size were utilized for this exam. Dedicated images of the thoracic spine were obtained. Comparison: Comparison is made to chest radiograph 10/15/2019 FINDINGS: Lungs and pleura: Atelectasis versus scarring is seen in the dependent portions of the lungs. Calcified granulomata are seen. There is a 4 mm nodule in the right middle lobe (series 6 image 157) and a 5 mm nodule in the left lower lobe (image 177). Heart and pericardium: Implanted pacemaker is seen. Cardiac silhouette is otherwise unremarkable. Vessels: Moderate atherosclerotic changes in the aorta and coronary arteries. Mediastinum and tory: Unremarkable. Chest wall and lower neck: Unremarkable. Abdomen: A [id number]-[id number] hiatal hernia is seen. Exophytic right renal cyst is partially visualized. A few bony hemangiomas are seen. Bones: Degenerative changes in the thoracic spine. IMPRESSION: 1. No evidence of acute fractures. Degenerative changes are seen in the spine. 2. A few pulmonary nodules are seen as above. According to Fleischner criteria, no follow-up is required in low risk patients, in high-risk patients, a 12 month follow-up CT can be optionally performed. ACT 112: Negative or not required by law. Electronically signed by: Lonny Francisco M.D. 10/24/2022 1:40 PM Dictated:10/24/22 1335 Transcribed: 10/24/22 1335
[2022-10-25] MEDS ORDERED: ALBUTEROL HFA 8 GM INHALER INH PRN (11:38)
[2022-10-25] MEDS: EMPAGLIFLOZIN 10 MG TAB PO SCH (11:59)
[2022-10-25] MEDS: AMIODARONE 200 MG TAB PO SCH (11:59)
[2022-10-25] MEDS: APIXABAN 5 MG TABLET PO SCH ×2 (12:00→20:18)
[2022-10-25] MEDS: METOPROLOL SUCC 50MG EXT REL TAB PO SCH ×2 (12:00→20:18)
--- NOTE | 2022-10-25 16:28 | Hospitalist Progress Note ---
Date of Service October 25, 2022 Assessment & Plan (1) Spinal fracture of T11 vertebra: (2) Spinal fracture of T12 vertebra: (3) Fracture of L1 vertebra: (4) L2 vertebral fracture: (5) Atrial fibrillation: (6) Hypertension: (7) Hyperlipidemia: (8) Pacemaker: (9) Diabetes mellitus type 2, diet-controlled: (10) VAISHNAVI on CPAP: Plan Fall with multiple vertebral fractures (T11, T12, L1, L2)-CT reviewed. Orthopedic recommendations reviewed-no surgical intervention, continue LSO brace, physical therapy and rehab. Outpatient follow-up with orthopedics CT lumbar spine 1. There are acute left transverse process fractures of L1 and L2. 2. No additional acute fracture is seen involving the lumbar spine. 3. There is an acute superior endplate compression fracture of T11 with mild loss of height. No retropulsed fragments are seen. 4. There is also likely a minimal acute superior endplate compression fracture of T12. 5. Large right lateral disc extrusion at L2-L3. Paroxysmal atrial fibrillation-continue Eliquis, amiodarone, metoprolol Essential hypertension-blood pressure elevated. Reviewed outpatient records and spoke to her daughter regarding her medications. Will resume lisinopril, Toprol, Lasix Well-controlled diabetes mellitus type II A1c 6.6-blood sugar well controlled. Patient declined insulin. Resumed Jardiance. Pulmonary nodule-seen CT. No follow-up required if low risk, 12-month follow-up CT if high risk. Follow up with PCP. DVT prophylaxis-Eliquis Dispo-PT OT recommends rehab. CM following. Patient is stable to go to rehab Updated daughter over the phone Admission and Anticipated Discharge Date Admission Date: October 24, 2022 Subjective Patient was seen and examined at bedside. Her pain has significantly improved with 1 dose of IV morphine this morning. She was still waiting to see Dr. Tovar during encounter this morning. No fever, chills, chest pain, shortness of breath, nausea or vomiting. Denies any numbness, weakness or tingling in the legs. Denies any bowel bladder incontinence. Review of Systems Review of Systems: All systems reviewed & are unremarkable except as noted in Subjective Physical Exam Physical Exam: General: Lying comfortably in bed, not in distress, on room air HEENT: EOMI, CINDA, MMM Chest: Clear breath sounds bilaterally, no wheezes or crackles CVS: Regular rate and rhythm, normal heart sounds, no murmur Abdomen: Soft, non tender, not distended, normal bowel sounds Neuro: Awake, alert, oriented, conversing well, non focal Extremities: No cyanosis, clubbing or edema Results & Data Results & Data Vital Signs (Past 12 Hours) Vital Signs Temp Pulse Resp BP Pulse Ox O2 Del Method 10/25/22 15:54 36.6 C 60 14 176/81 H 96 Room Air 10/25/22 11:56 63 159/79 H 10/25/22 09:04 Room Air 10/25/22 07:13 36.6 C 62 14 173/81 H 95 Room Air Laboratory Results Short CBC 10/24/22 10/25/22 Range/Units 16:18 05:28 WBC 6.28 6.33 (4.8-10.8) K/ul Hgb 13.6 13.6 (12.0-16.0) g/dl Hct 41.0 42.3 (37.0-47.0) % Plt Count 222 208 (130-400) K/uL [facility] 10/24/22 10/25/22 16:11 05:28 Sodium 139 136 Potassium 4.3 3.8 Chloride 105 105 Carbon Dioxide 25 25 BUN 22 24 H Creatinine 0.84 0.89 Glucose 88 99 Calcium 10.1 9.8 Liver Function 10/24/22 Range/Units 16:11 Total Bilirubin 0.6 (0.2-1.0) mg/dl AST 14 (13-39) U/L ALT 6 L (7-52) U/L Alkaline Phosphatase 107 H (34-104) U/L Albumin 3.9 (3.4-5.0) gm/dl Medications Administered Current Inpatient Medications Acetaminophen (Acetaminophen 500 Mg Tab) 1,000 mg PO Q8H CHRISTINA Stop: 11/23/22 18:24 Last Admin: 10/25/22 09:04 Dose: 1,000 mg Albuterol (Albuterol Hfa 8 Gm Inhaler) 2 puffs INH QID PRN PRN Reason: Shortness Of Breath Or Wheezing Stop: 11/24/22 11:37 Amiodarone HCl (Amiodarone 200 Mg Tab) 200 mg PO QAM CHRISTINA Stop: 11/24/22 11:29 Last Admin: 10/25/22 11:59 Dose: 200 mg Apixaban (Apixaban 5 Mg Tablet) 5 mg PO BID [facility] Stop: 11/24/22 11:29 Last Admin: 10/25/22 12:00 Dose: 5 mg Bisacodyl (Bisacodyl 5 Mg Tabec) 5 mg PO DAILY CHRISTINA Stop: 11/23/22 18:24 Last Admin: 10/25/22 09:05 Dose: Not Given Dextrose (Dextrose 50% 50 Ml Syringe) 25 - 50 ml IV UD PRN; Protocol PRN Reason: Hypoglycemia Protocol Stop: 11/23/22 18:24 Empagliflozin (Empagliflozin 10 Mg Tab) 10 mg PO QAM [facility] Stop: 11/24/22 11:29 Last Admin: 10/25/22 11:59 Dose: 10 mg Furosemide (Furosemide 20 Mg Tab) 20 mg PO QAM [facility] Stop: 11/25/22 08:59 Glucagon (Glucagon For Inj 1 Mg Vial) 1 mg SQ UD PRN; Protocol PRN Reason: Hypoglycemia Protocol Stop: 11/23/22 18:24 Glucose (Glucose 10 Tab/Tube) 4 - 8 tab PO UD PRN; Protocol PRN Reason: Hypoglycemia Treatment Stop: 11/23/22 18:24 Glucose (Glucose 40% Gel 15 Gm Tube) 15 - 30 gm PO UD PRN; Protocol PRN Reason: Hypoglycemia Protocol Stop: 11/23/22 18:24 Metoprolol Succinate (Metoprolol Succ 50mg Ext Rel Tab) 50 mg PO BID [facility] Stop: 11/24/22 11:29 Last Admin: 10/25/22 12:00 Dose: 50 mg Mirtazapine (Mirtazapine Tab 15 Mg Tab) 7.5 mg PO HS [facility] Stop: 11/24/22 20:59 Miscellaneous (Carbohydrates For Hypoglycemia ) 15 - 30 gm PO UD PRN PRN Reason: Hypoglycemia Protocol Stop: 11/23/22 18:24 Morphine Sulfate (Morphine Sulfate 2 Mg/Ml Carp) 4 mg IV Q4H PRN PRN Reason: severe pain, rating 8,9,10 Stop: 11/07/22 18:24 Ondansetron HCl (Ondansetron Inj 2 Mg/Ml 2 Ml Vial) 4 mg IV Q4H PRN PRN Reason: Nausea And Vomiting Stop: 11/23/22 18:24 Oxycodone HCl (Oxycodone Hcl Ir 5 Mg Tab (Immediate Release)) 5 mg PO Q6H PRN PRN Reason: Moderate pain, rating 5,6,7 Stop: 11/07/22 18:24 Polyethylene Glycol (Polyethylene (Miralax) 17 Gm Pack) 17 gm PO DAILY CHRISTINA Stop: 11/23/22 18:24 Last Admin: 10/25/22 09:05 Dose: Not Given
[2022-10-25] MEDS ORDERED: lisinopril 5 MG TAB PO SCH (16:35)
[2022-10-25] MEDS ORDERED: Nursing to Pharmacy Communication SCH (17:00)
[2022-10-25] MEDS: lisinopril 5 MG TAB PO SCH (17:37)
[2022-10-25] MEDS: oxyCODONE HCL IR 5 MG TAB (IMMEDIATE RELEASE) PO PRN (17:39)
[2022-10-25] MEDS ORDERED: MIRTAZAPINE TAB 15 MG TAB PO SCH (21:00)
[2022-10-26] MEDS: ACETAMINOPHEN 500 MG TAB PO SCH ×3 (04:34→20:04)
[2022-10-26 07:19] LABS: BUN Creatinine Ratio 22.5 (10-20); Calcium 9.6 mg/dl (8.6-10.3); Creatinine Clr Calc Pharmacy 49.3 ml/min; Est GFR (Non-African American) 58.7 ml/min; Potassium 3.9 mmol/L (3.5-5.1)
[2022-10-26 07:25] LABS: Hematocrit (blood only) 40.7 % (37.0-47.0); Hemoglobin 13.7 g/dl (12.0-16.0); Mean Corpuscular Hemoglobin 30.4 pg (25.0-34.0); Mean Corpuscular Hgb Conc 33.7 g/dL (32.0-36.0); Mean Corpuscular Volume 90.4 fL (80.0-100.0); Mean Platelet Volume 8.8 fL (9.4-12.4); Platelet Count 213 K/uL (130-400); RDW Coefficient of Variation 15.9 % (11.5-14.5); White Blood Count 5.69 K/ul (4.8-10.8)
[2022-10-26] MEDS: FUROSEMIDE 20 MG TAB PO SCH (08:44)
[2022-10-26] MEDS: POLYETHYLENE (MIRALAX) 17 GM PACK PO SCH (08:44)
[2022-10-26] MEDS: EMPAGLIFLOZIN 10 MG TAB PO SCH (08:48)
[2022-10-26] MEDS: MIRTAZAPINE TAB 15 MG TAB PO PRN (08:48)
[2022-10-26] MEDS: APIXABAN 5 MG TABLET PO SCH ×2 (08:48→20:05)
[2022-10-26] MEDS: lisinopril 5 MG TAB PO SCH (08:49)
[2022-10-26] MEDS: AMIODARONE 200 MG TAB PO SCH (08:49)
[2022-10-26] MEDS: METOPROLOL SUCC 50MG EXT REL TAB PO SCH ×2 (08:49→20:05)
[2022-10-26] MEDS: bisacodyL 5 MG TABEC PO SCH (08:50)
[2022-10-26] MEDS: oxyCODONE HCL IR 5 MG TAB (IMMEDIATE RELEASE) PO PRN (11:08)
--- NOTE | 2022-10-26 15:20 | Hospitalist Progress Note ---
Date of Service October 26, 2022 Assessment & Plan (1) Spinal fracture of T11 vertebra: (2) Spinal fracture of T12 vertebra: (3) Fracture of L1 vertebra: (4) L2 vertebral fracture: (5) Atrial fibrillation: (6) Hypertension: (7) Hyperlipidemia: (8) Pacemaker: (9) Diabetes mellitus type 2, diet-controlled: (10) VAISHNAVI on CPAP: Plan Fall with multiple vertebral fractures (T11, T12, L1, L2)-CT reviewed. Orthopedic recommendations reviewed-no surgical intervention, continue LSO brace, physical therapy and rehab. Outpatient follow-up with orthopedics CT lumbar spine 1. There are acute left transverse process fractures of L1 and L2. 2. No additional acute fracture is seen involving the lumbar spine. 3. There is an acute superior endplate compression fracture of T11 with mild loss of height. No retropulsed fragments are seen. 4. There is also likely a minimal acute superior endplate compression fracture of T12. 5. Large right lateral disc extrusion at L2-L3. Paroxysmal atrial fibrillation-continue Eliquis, amiodarone, metoprolol Essential hypertension-blood pressure controlled. Continue lisinopril, Toprol, Lasix Well-controlled diabetes mellitus type II A1c 6.6-blood sugar well controlled. Patient declined insulin. Resumed Jardiance. Pulmonary nodule-seen CT. No follow-up required if low risk, 12-month follow-up CT if high risk. Follow up with PCP. DVT prophylaxis-Eliquis Dispo-PT OT recommends rehab. CM following- needs 3 midnights in the hospital prior to going to rehab per medicare rule. Patient is stable to go to rehab. Plan to discharge tomorrow. Admission and Anticipated Discharge Date Admission Date: October 24, 2022 Subjective Patient was seen and examined at bedside. She states her brace is ill fitting and hitting her neck while sitting; and awaiting for the orthotics personnel to fix it. Pain is controlled. No new issue. No CP, SOB, N/V, fever or chills. Review of Systems Review of Systems: All systems reviewed & are unremarkable except as noted in Subjective Physical Exam Physical Exam: General: Sitting comfortably in chair, back brace in place, not in distress, on room air HEENT: EOMI, CINDA, MMM Chest: Clear breath sounds bilaterally, no wheezes or crackles CVS: Regular rate and rhythm, normal heart sounds, no murmur Abdomen: Soft, non tender, not distended, normal bowel sounds Neuro: Awake, alert, oriented, conversing well, non focal Extremities: No cyanosis, clubbing or edema Results & Data Results & Data Vital Signs (Past 12 Hours) Vital Signs Temp Pulse Resp BP Pulse Ox O2 Del Method 10/26/22 07:53 114/75 10/26/22 07:45 36.4 C L 60 16 171/80 H 94 Room Air Laboratory Results Short CBC 10/26/22 Range/Units 06:40 WBC 5.69 (4.8-10.8) K/ul Hgb 13.7 (12.0-16.0) g/dl Hct 40.7 (37.0-47.0) % Plt Count 213 (130-400) K/uL BMP 10/26/22 06:40 Sodium 136 Potassium 3.9 Chloride 105 Carbon Dioxide 25 BUN 20 Creatinine 0.89 Glucose 94 Calcium 9.6 Medications Administered Current Inpatient Medications Acetaminophen (Acetaminophen 500 Mg Tab) 1,000 mg PO Q8H CHRISTINA Stop: 11/23/22 18:24 Last Admin: 10/26/22 11:47 Dose: 1,000 mg Albuterol (Albuterol Hfa 8 Gm Inhaler) 2 puffs INH QID PRN PRN Reason: Shortness Of Breath Or Wheezing Stop: 11/24/22 11:37 Amiodarone HCl (Amiodarone 200 Mg Tab) 200 mg PO QAM CHRISTINA Stop: 11/24/22 11:29 Last Admin: 10/26/22 08:49 Dose: 200 mg Apixaban (Apixaban 5 Mg Tablet) 5 mg PO BID CHRISTINA Stop: 11/24/22 11:29 Last Admin: 10/26/22 08:48 Dose: 5 mg Bisacodyl (Bisacodyl 5 Mg Tabec) 5 mg PO DAILY CHRISTINA Stop: 11/23/22 18:24 Last Admin: 10/26/22 08:50 Dose: Not Given Dextrose (Dextrose 50% 50 Ml Syringe) 25 - 50 ml IV UD PRN; Protocol PRN Reason: Hypoglycemia Protocol Stop: 11/23/22 18:24 Empagliflozin (Empagliflozin 10 Mg Tab) 10 mg PO QAM CHRISTINA Stop: 11/24/22 11:29 Last Admin: 10/26/22 08:48 Dose: 10 mg Furosemide (Furosemide 20 Mg Tab) 20 mg PO QAM [facility] Stop: 11/25/22 08:59 Last Admin: 10/26/22 08:44 Dose: 20 mg Glucagon (Glucagon For Inj 1 Mg Vial) 1 mg SQ UD PRN; Protocol PRN Reason: Hypoglycemia Protocol Stop: 11/23/22 18:24 Glucose (Glucose 10 Tab/Tube) 4 - 8 tab PO UD PRN; Protocol PRN Reason: Hypoglycemia Treatment Stop: 11/23/22 18:24 Glucose (Glucose 40% Gel 15 Gm Tube) 15 - 30 gm PO UD PRN; Protocol PRN Reason: Hypoglycemia Protocol Stop: 11/23/22 18:24 Lisinopril (Lisinopril 5 Mg Tab) 5 mg PO DAILY [facility] Stop: 11/24/22 16:44 Last Admin: 10/26/22 08:49 Dose: 5 mg Metoprolol Succinate (Metoprolol Succ 50mg Ext Rel Tab) 50 mg PO BID [facility] Stop: 11/24/22 11:29 Last Admin: 10/26/22 08:49 Dose: 50 mg Mirtazapine (Mirtazapine Tab 15 Mg Tab) 7.5 mg PO HS PRN PRN Reason: Insomnia Stop: 11/24/22 20:59 Last Admin: 10/26/22 08:48 Dose: 7.5 mg Miscellaneous (Carbohydrates For Hypoglycemia ) 15 - 30 gm PO UD PRN PRN Reason: Hypoglycemia Protocol Stop: 11/23/22 18:24 Morphine Sulfate (Morphine Sulfate 2 Mg/Ml Carp) 4 mg IV Q4H PRN PRN Reason: severe pain, rating 8,9,10 Stop: 11/07/22 18:24 Last Admin: 10/25/22 20:24 Dose: 4 mg Ondansetron HCl (Ondansetron Inj 2 Mg/Ml 2 Ml Vial) 4 mg IV Q4H PRN PRN Reason: Nausea And Vomiting Stop: 11/23/22 18:24 Oxycodone HCl (Oxycodone Hcl Ir 5 Mg Tab (Immediate Release)) 5 mg PO Q6H PRN PRN Reason: Moderate pain, rating 5,6,7 Stop: 11/07/22 18:24 Last Admin: 10/26/22 11:08 Dose: 5 mg Polyethylene Glycol (Polyethylene (Miralax) 17 Gm Pack) 17 gm PO DAILY CHRISTINA Stop: 11/23/22 18:24 Last Admin: 10/26/22 08:44 Dose: 17 gm
[2022-10-27] MEDS: MIRTAZAPINE TAB 15 MG TAB PO PRN (03:07)
[2022-10-27] MEDS: ACETAMINOPHEN 500 MG TAB PO SCH ×2 (03:07→12:14)
[2022-10-27] MEDS: METOPROLOL SUCC 50MG EXT REL TAB PO SCH (09:13)
[2022-10-27] MEDS: APIXABAN 5 MG TABLET PO SCH (09:13)
[2022-10-27] MEDS: lisinopril 5 MG TAB PO SCH (09:13)
[2022-10-27] MEDS: FUROSEMIDE 20 MG TAB PO SCH (09:13)
[2022-10-27] MEDS: EMPAGLIFLOZIN 10 MG TAB PO SCH (09:14)
[2022-10-27] MEDS: AMIODARONE 200 MG TAB PO SCH (09:14)
[2022-10-27] MEDS: POLYETHYLENE (MIRALAX) 17 GM PACK PO SCH (09:15)
[2022-10-27] MEDS: oxyCODONE HCL IR 5 MG TAB (IMMEDIATE RELEASE) PO PRN (09:19)
[2022-10-27] MEDS: bisacodyL 5 MG TABEC PO SCH (09:19)
--- NOTE | 2022-10-27 16:16 | Discharge Summary ---
Date of Service October 27, 2022 Admission HPI Per Admitting Provider This is a 87 yo F with PMhx of A-fib on Eliquis, HTN, HLD, osteoporosis, VAISHNAVI, DM type II, spinal stenosis, polyneuropathy, macular degeneration who presents to the hospital with acute worsening rib and low back pain. Pt reports in mid July falling and broke her right tibia and fibula, and was in rehab until mid August. After being home for a few weeks and doing well, she fell while trying to get up from quilting on the ground by using a chair which was on wheels and went down on her right side. The majority of her pain is around her bra line and wraps around her ribs, and also through her lower back. Denies any urinary or bowel incontinence. She trialed walking and was able to but with significant pain, and at home was only using tylenol and topical arnica with minimal relief. Pt was seen last week at Dr. De La Rosa office and was x-rayed without seeing any fractures in the lumbar spine, and was instructed to use a walker. Pt was scheduled for repeat imaging this coming week to assess for fracture again in case it was not seen on the first imaging studies. Her last lumbar surgery was L5-S1 with Dr. Tovar in 2019. She would prefer to see him again if possible. Pt reports pain is currently rated a 5/10 with being administered oxycodone p.o. in the ER. Her daughter is present with her at bedside, Felecia, who assists with the history. Patient is agreeable to rehab and/or brace if recommended. Imaging studies showing T11 and T12 compression fractures, L1 and [address] of the head and chest is negative. Right knee showing soft tissue swelling and joint effusion without acute fracture. Skeletal structures are osteopenic. Admission Exam Per Admitting Provider General: awake, alert, no apparent distress Head: Normocephalic, atraumatic ENT: PERRL, EOMI, no pharyngeal exudate, mucous membranes moist Chest: Clear to auscultation, on room air, no adventitious breath sounds Cardiac: Regular rate and rhythm, no murmur, no JVD, normal peripheral pulses, good capillary refill Abdominal: NABS x 4 quadrants, soft, nondistended, nontender to palpation, no rebound or guarding Back: no ecchymosis visualized, + pain with palpation across the lower back, no focal point tenderness Extremities: Normal inspection, no peripheral edema or erythema, calfs nontender to palpation Psych: Normal mood and affect Neuro: AAO x 3, strength intact bilaterally and rated 5/5, negative straight leg raise no motor deficits, speech is clear, no peripheral sensory deficits Principal Diagnosis Multiple vertebral compression fractures after fall Discharge Exam General: Lying comfortably in bed, not in distress, on room air HEENT: EOMI, CINDA, MMM Chest: Clear breath sounds bilaterally, no wheezes or crackles CVS: Regular rate and rhythm, normal heart sounds, no murmur Abdomen: Soft, non tender, not distended, normal bowel sounds Neuro: Awake, alert, oriented, conversing well, non focal Extremities: No cyanosis, clubbing or edema Discharge Data Allergies Allergy/AdvReac Type Severity Reaction Status Date / Time adhesive tape Allergy Intermediate TEARS SKIN Verified 10/24/22 14:59 dronedarone Allergy Intermediate Rash Verified 10/24/22 14:59 tetracycline AdvReac Intermediate CAUSED Verified 10/24/22 14:59 YEAST INFECTION Consultations 10/24/22 14:39 ED Decision to Admit Stat 10/24/22 15:29 Consult Orthopedic Spine Surgery Routine Ordered Studies 10/24/22 12:21 CT chest diagnostic wo con Stat CT lumbar spine wo con Stat 10/24/22 13:00 CT head/brain wo con Stat CT thoracic spine wo con Stat Laboratory Results WBC 5.69 K/ul (4.8-10.8) 10/26/22 06:40 RBC 4.50 M/uL (4.20-5.40) 10/26/22 06:40 Hgb 13.7 g/dl (12.0-16.0) 10/26/22 06:40 Hct 40.7 % (37.0-47.0) 10/26/22 06:40 MCV 90.4 fL (80.0-100.0) 10/26/22 06:40 MCH 30.4 pg (25.0-34.0) 10/26/22 06:40 MCHC 33.7 g/dL (32.0-36.0) 10/26/22 06:40 RDW Std Deviation 52.0 fL (36.4-46.3) H 10/26/22 06:40 RDW Coeff of Chuy 15.9 % (11.5-14.5) H 10/26/22 06:40 Plt Count 213 K/uL (130-400) 10/26/22 06:40 MPV 8.8 fL (9.4-12.4) L 10/26/22 06:40 Immature Gran % (Auto) 0.5 % 10/24/22 16:18 Neut % (Auto) 66.6 % 10/24/22 16:18 Lymph % (Auto) 22.0 % 10/24/22 16:18 [place] % (Auto) 8.1 % 10/24/22 16:18 Eos % (Auto) 2.5 % 10/24/22 16:18 Baso % (Auto) 0.3 % 10/24/22 16:18 Neut # (Auto) 4.18 K/uL (1.40-6.50) 10/24/22 16:18 Lymph # (Auto) 1.38 K/uL (1.2-3.4) 10/24/22 16:18 [place] # (Auto) 0.51 K/uL (0.11-0.59) 10/24/22 16:18 Eos # (Auto) 0.16 K/uL (0-0.50) 10/24/22 16:18 Baso # (Auto) 0.02 K/uL (0-0.2) 10/24/22 16:18 Immature Gran # (Auto) 0.03 K/uL (0.01-0.20) 10/24/22 16:18 Sodium 136 mmol/L (136-145) 10/26/22 06:40 Potassium 3.9 mmol/L (3.5-5.1) 10/26/22 06:40 Chloride 105 mmol/L (98-107) 10/26/22 06:40 Carbon Dioxide 25 mmol/L (21-32) 10/26/22 06:40 Anion Gap 6 (3-11) 10/26/22 06:40 BUN 20 mg/dl (6-23) 10/26/22 06:40 Creatinine 0.89 mg/dl (0.6-1.2) 10/26/22 06:40 Est Cr Clr Drug Dosing 49.3 ml/min 10/26/22 06:40 Est GFR ( Amer) 68.0 ml/min 10/26/22 06:40 Est GFR (Non-Af Amer) 58.7 ml/min 10/26/22 06:40 BUN/Creatinine Ratio 22.5 (10-20) H 10/26/22 06:40 Glucose 94 mg/dl (70-99(Fasting)) 10/26/22 06:40 POC Glucose 100 mg/dl (70-99) H 10/26/22 11:45 Estimat Average Glucose 143 mg/dl 10/25/22 05:28 Hemoglobin A1c 6.6 % (4.5-5.6) H 10/25/22 05:28 Calcium 9.6 mg/dl (8.6-10.3) 10/26/22 06:40 Total Bilirubin 0.6 mg/dl (0.2-1.0) 10/24/22 16:11 AST 14 U/L (13-39) 10/24/22 16:11 ALT 6 U/L (7-52) L 10/24/22 16:11 Alkaline Phosphatase 107 U/L (34-104) H 10/24/22 16:11 Total Protein 7.7 gm/dl (6.0-8.3) 10/24/22 16:11 Albumin 3.9 gm/dl (3.4-5.0) 10/24/22 16:11 Globulin 3.8 gm/dl (2.5-4.0) 10/24/22 16:11 Albumin/Globulin Ratio 1.0 (0.9-2) 10/24/22 16:11 SARS-CoV-2, RNA, NAAT NEGATIVE (NEGATIVE) 10/24/[address] 10/24/22 12:21 CT chest diagnostic wo con, CT thoracic spine wo con CLINICAL HISTORY: Fall 10/12/2022, persistent jackson rib pain TECHNIQUE: Multidetector row helical CT of the chest was performed. Coronal and sagittal reformations were obtained. Automated dose lowering techniques and/or adjustment according to patient size were utilized for this exam. Dedicated images of the thoracic spine were obtained. Comparison: Comparison is made to chest radiograph 10/15/2019 FINDINGS: Lungs and pleura: Atelectasis versus scarring is seen in the dependent portions of the lungs. Calcified granulomata are seen. There is a 4 mm nodule in the right middle lobe (series 6 image 157) and a 5 mm nodule in the left lower lobe (image 177). Heart and pericardium: Implanted pacemaker is seen. Cardiac silhouette is otherwise unremarkable. Vessels: Moderate atherosclerotic changes in the aorta and coronary arteries. Mediastinum and tory: Unremarkable. Chest wall and lower neck: Unremarkable. Abdomen: A narzm-ax-aytgoaos hiatal hernia is seen. Exophytic right renal cyst is partially visualized. A few bony hemangiomas are seen. Bones: Degenerative changes in the thoracic spine. IMPRESSION: 1. No evidence of acute fractures. Degenerative changes are seen in the spine. 2. A few pulmonary nodules are seen as above. According to Fleischner criteria, no follow-up is required in low risk patients, in high-risk patients, a 12 month follow-up CT can be optionally performed. ACT 112: Negative or not required by law. Electronically signed by: Lonny Francisco M.D. 10/24/2022 1:[address] 10/24/22 12:21 CT SCAN OF THE LUMBAR SPINE WITHOUT IV CONTRAST CLINICAL HISTORY: Low back pain. Radiculopathy. Recent fall. COMPARISON STUDY: MRI of the lumbar spine dated 03/01/2019. TECHNIQUE: CT scan of the lumbar spine is performed from the lower thoracic spine to the sacrum. Images are reviewed in the axial, sagittal, and coronal planes. IV contrast was not administered for this examination. A dose lowering technique was utilized adhering to the principles of ALARA. The examination is degraded by streak artifact from extensive metallic spinal hardware. CT DOSE: 2818.32 mGy.cm FINDINGS: The skeletal structures are osteopenic. There are acute left transverse process fractures of L1 and L2. No additional acute fracture is seen involving the lumbar spine. There is a mild acute superior plate compression fracture of T11. There may also be minimal acute superior endplate compression fracture of T12. Mild paravertebral edema is noted these levels. No retropulsed fragments are seen. Vertebral body height and alignment are maintained throughout the lumbar spine. There is straightening of the lumbar lordosis with reversal centered at L1-L2. Large anterior and lateral marginal osteophytes are seen throughout. The patient is status post laminectomy and posterior fusion at L2-L3 and at L5-S1. Interpedicular screws are in place. The remaining spinous processes appear intact. There is no spondylolysis. There is severe disc space narrowing at L1-L2 with associated endplate sclerosis. Severe disc space narrowing is also seen at L5-S1. Mild disc space narrowing is noted at the remaining lumbar levels. There is no CT evidence of large disc herniation or high-grade central canal stenosis. There is a large right lateral disc extrusion at L2-L3. This is seen on axial image #189 and likely impinges on the exiting right L2 nerve root. The visualized sacrum and bony pelvis appear intact. Degenerative sclerosis is noted in the sacroiliac joints. There is fatty atrophy of the paraspinous musculature. Postsurgical change is seen posterior to the thecal sac. Bilateral renal cysts measure up to 4 cm. A retroaortic left renal vein is incidentally noted. There is advanced atherosclerotic calcification of the abdominal aorta which is normal in caliber. Diverticulosis is partially visu alized in the sigmoid colon. IMPRESSION: 1. There are acute left transverse process fractures of L1 and L2. 2. No additional acute fracture is seen involving the lumbar spine. 3. There is an acute superior endplate compression fracture of T11 with mild loss of height. No retropulsed fragments are seen. 4. There is also likely a minimal acute superior endplate compression fracture of T12. 5. Large right lateral disc extrusion at L2-L3. ACT 112: Negative or not required by law. Electronically signed by: Alejandro Daniels M.D. 10/24/2022 1:47 PM Knee X-Ray 10/24/22 12:46 RIGHT KNEE 3 VIEWS CLINICAL HISTORY: Right knee pain. FINDINGS: AP, crosstable lateral, and sunrise views of the right knee are obtained. No prior studies are available for comparison at the time of dictation. The skeletal structures are osteopenic. No fracture is seen. There are marginal osteophytes and patellar enthesophytes. Mild to moderate tricompartmental degenerative joint space narrowing is seen throughout the knee. There is a joint effusion. Soft tissue swelling is present around the knee. There is advanced atherosclerotic calcification of the popliteal artery. IMPRESSION: Soft tissue swelling and joint effusion with no acute fracture identified. Electronically signed by: Alejandro Daniels M.D. 10/24/2022 2:[address] 10/24/22 13:00 CT OF THE HEAD WITHOUT CONTRAST CLINICAL HISTORY: Fall, anticoagulated, headache COMPARISON STUDY: No previous studies for comparison. TECHNIQUE: Helical axial images of the head were obtained without IV contrast. Automated exposure control was utilized for the study. A dose lowering technique was utilized adhering to the principles of ALARA. FINDINGS: No acute intracranial hemorrhage, midline shift or mass effect is present. White matter hypodensities are suggestive of small vessel disease. The ventricular system is unremarkable. The basal cisterns are patent. No extra- axial collections are present. There are no findings to suggest acute dural sinus thrombosis or acute territorial infarct. No significant calvarial abnormalities are present. Visualized portions of the sinuses and mastoid air cells are clear. IMPRESSION: 1. No acute intracranial findings. 2. No acute calvarial fracture. ACT 112: Negative or not required by law. Electronically signed by: Nasim Sharma M.D. 10/24/2022 1:[address] 10/24/22 13:00 CT chest diagnostic wo con, CT thoracic spine wo con CLINICAL HISTORY: Fall 10/12/2022, persistent jackson rib pain TECHNIQUE: Multidetector row helical CT of the chest was performed. Coronal and sagittal reformations were obtained. Automated dose lowering techniques and/or adjustment according to patient size were utilized for this exam. Dedicated images of the thoracic spine were obtained. Comparison: Comparison is made to chest radiograph 10/15/2019 FINDINGS: Lungs and pleura: Atelectasis versus scarring is seen in the dependent portions of the lungs. Calcified granulomata are seen. There is a 4 mm nodule in the right middle lobe (series 6 image 157) and a 5 mm nodule in the left lower lobe (image 177). Heart and pericardium: Implanted pacemaker is seen. Cardiac silhouette is otherwise unremarkable. Vessels: Moderate atherosclerotic changes in the aorta and coronary arteries. Mediastinum and tory: Unremarkable. Chest wall and lower neck: Unremarkable. Abdomen: A [id number] hiatal hernia is seen. Exophytic right renal cyst is partially visualized. A few bony hemangiomas are seen. Bones: Degenerative changes in the thoracic spine. IMPRESSION: 1. No evidence of acute fractures. Degenerative changes are seen in the spine. 2. A few pulmonary nodules are seen as above. According to Fleischner criteria, no follow-up is required in low risk patients, in high-risk patients, a 12 month follow-up CT can be optionally performed. ACT 112: Negative or not required by law. Electronically signed by: Lonny Francisco M.D. 10/24/2022 1:40 PM Hospital Course (1) Spinal fracture of T11 vertebra: (2) Spinal fracture of T12 vertebra: (3) Fracture of L1 vertebra: (4) L2 vertebral fracture: (5) Atrial fibrillation: (6) Hypertension: (7) Hyperlipidemia: (8) Pacemaker: (9) Diabetes mellitus type 2, diet-controlled: (10) VAISHNAVI on CPAP: Plan 87 year old female who fell down and presented with multiple vertebral fractures (T11, T12, L1, L2). CT reviewed. Seen by Orthopedic and recommendations noted- no surgical intervention, continue LSO brace, physical therapy and rehab. Her pain is well controlled with tylenol, requiring only intermittent oxycodone and last dose was yesterday morning, however prescribing 6 pills of oxy in case she needs it. PDMP reviewed. Seen by PT OT and recommended rehab. However she needed to stay 3 midnights in the hospital prior to rehab transfer as per medicare rules. She has been stable throughout the hospital stay. Recommend outpatient follow-up with orthopedics CT lumbar spine 1. There are acute left transverse process fractures of L1 and L2. 2. No additional acute fracture is seen involving the lumbar spine. 3. There is an acute superior endplate compression fracture of T11 with mild lo ss of height. No retropulsed fragments are seen. 4. There is also likely a minimal acute superior endplate compression fracture of T12. 5. Large right lateral disc extrusion at L2-L3. Paroxysmal atrial fibrillation-continue Eliquis, amiodarone, metoprolol Essential hypertension-blood pressure controlled. Continue lisinopril, Toprol, Lasix. Recommend uptitration of lisinopril if BP still uncontrolled. Well-controlled diabetes mellitus type II A1c 6.6-blood sugar well controlled. Continue Jardiance. Pulmonary nodule-seen CT. No follow-up required if low risk, 12-month follow-up CT if high risk. Follow up with PCP. Total Time Total Time Spent Total Time Spent (In Minutes): 35 Discharge Plan Discharge Items Patient Disposition: Transfer Assisted Fac Reason For Visit: COMPRESSION FRACTURE Discharge Diagnosis: Multiple vertebral compression fractures Condition on Discharge: Good Activity: Resume your previous activity Non-emergency contact: Primary Care Provider Call non-emergency contact if: you have any medication questions, your symptoms worsen and your pain is not controlled Follow-up/Referrals: Felix Tovar DO [Surgeon] - (follow up in 2 weeks) Ministerio Mak MD [Primary Care Provider] - Diet: Carb Consistent or DM2 Addtl Attending Provider Instructions: TLSO brace to be worn when ambulating/standing. May remove to sit,sleep. Ambulate as tolerated. No lifting greater than 5 lbs. Follow up with Dr Tovar in the office in 2 weeks We have started you on lisinopril for your high blood pressure. The family doctor will titrate it up as needed for better control of blood pressure Pending Studies at Discharge: No Stand-Alone Forms: My [facility] [employer] Skilled Items Patient informed of condition?: No DNR: No Discharge Level of Care: Skilled Communicable Disease: No Discharge Prognosis: Stable Lines: None Urinary Catheter: No Medications and DC Order Prescriptions: New lisinopril [Zestril] 5 mg Tablet 5 mg PO DAILY Qty: 30 0RF oxycodone 5 mg Tablet 5 mg PO BID PRN (Reason: pain) 3 Days Qty: 6 0RF Continued Eliquis 5 mg Tablet 5 mg PO BID nitroglycerin [Nitrostat] 0.3 mg Tablet, Sublingual 0.3 mg sublingual DIRECTED MDD 3 DOSES PRN (Reason: Chest Pain) Rx Instructions: EVERY 5 MINUTES NEEDED FOR CHEST PAIN amiodarone 200 mg tablet 200 mg PO QAM metoprolol succinate 100 mg Tablet Extended Release 24 Hr 50 mg PO BID furosemide 20 mg tablet 20 mg PO QAM polyethylene glycol 3350 [Miralax] 17 gram/dose Powder 4.25 - 8.5 g PO Q OTHER DAY albuterol sulfate 90 mcg/actuation Hfa Aerosol Inhaler 2 puff INHALATION QID PRN (Reason: Shortness Of Breath Or Wheezing) PreserVision AREDS 2,148 mcg-113 mg-45 mg-17.4mg Tablet 1 tab PO BID Rx Instructions: administer with AM and PM meals Jardiance 10 mg tablet 10 mg PO QAM Changed acetaminophen [Tylenol Extra Strength] 500 mg Tablet 1,000 mg PO TID PRN (Reason: Pain) Qty: 30 0RF mirtazapine 15 mg tablet 7.5 mg PO HS PRN (Reason: prn) Qty: 30 0RF Discharge Orders: Discharge Order (Routine); Ordered 10/27/22 Ordered By: Reji Castellano/Other Patient Handouts: Managing Type 2 Diabetes Admission Data Admit Date/Time: 10/24/22 15:29 Attending Provider: Reji Crowley Admit Provider: Tamiko Santos Primary Care Provider: Ministerio Mak Other Providers: Tamiko Santos ; Felix Tovar Other Interventions: Discharge Summary Assessment (RN) Last Done: 10/27/22 11:23
== END 2022-10-27 13:51 | DRG 552 ==
LOC: ED 11:57 → 3W 15:29 → SUATTDRO 15:29 → 3W 16:46